=== PATIENT | female | born 1995 | race Caucasian/White ===

== ENCOUNTER 2020-06-24 05:55 | Inpatient (IN) ==
[2020-06-24] MEDS ORDERED: OXYTOCIN 30 UNITS/500 ML BAG IV PRN ×2 (06:48→16:50)
[2020-06-24 07:21] LABS: Hematocrit (blood only) 34.4 % (37-47); Mean Corpuscular Hemoglobin 25.5 pg (25-34); Mean Corpuscular Volume 79.8 fL (80-100); Mean Platelet Volume 10.6 fL (7.4-10.4); Platelet Count 279 K/uL (130-400); RDW Coefficient of Variation 14.1 % (11.5-14.5); Red Blood Count 4.31 M/uL (4.2-5.4); White Blood Count 12.55 K/uL (4.8-10.8)
[2020-06-24] MEDS ORDERED: LACTATED RINGER'S 500 ML IV ONE (07:49)
--- NOTE | 2020-06-24 07:55 | History & Physical Report ---
Date of Service June 24, 2020 Assessment & Plan (1) Uterine contractions at greater than 20 weeks of gestation: 24-year-old G1, P0 at 39 weeks and 5 days of gestation admitted for labor with regular contractions and cervical change Vital signs stable afebrile heart rate reassuring GBS negative, coronavirus negative Plan to admit monitor IV fluids and epidural for pain per patient desire Continue to monitor History of Present Illness Primary Care Provider: NO PCP Patient is a 24-year-old G1, P0 at 39 weeks and 5 days of gestation who presented to labor and delivery with contractions, started at 2:30 AM in the morning when she woke up with pain. Having getting more irregular and painful, she rates the pain 8 out of 10. She denies leakage of fluid or vaginal bleeding. She reports good movements She denies fever chills, nausea vomiting, headache, change in her vision, no chest pain or shortness of breath. Her has been uncomplicated, GBS negative, coronavirus negative. She has a remote history of asthma, superior mesenteric artery syndrome. No recent episodes of asthma neither SMA. She denies nausea vomiting, abdominal pain with eating, diarrhea. She has seen [facility] for this and growth ultrasound was within normal limits, no other recommendations were made. 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 Review of Systems All systems reviewed & are unremarkable except as noted in HPI & below Physical Exam Constitutional: WD/WN, vitals as above well developed and + thin Gastrointestinal (Abdomen): normal bowel sounds, soft, nontender, no hepatosplenomegaly (Gravid, Nikita 7 lb) Musculoskeletal: no cyanosis or clubbing, extremities motor strength 5/5 Extremities: extremities normal to inspection and strength 5/5 throughout Genitourinary: no vaginal lesions, no adnexal mass normal external appearance Manual OB Exam: + cervical dilation 5 cm, + cervical effacement 90% and + station -1 OB Exam Monitor Tracing: + external uterine monitor used and + category I Results & Data ([facility]) Vital Signs (Past 12 Hours) Vital Signs Temp Pulse Pulse Resp BP BP 06/24/20 07:05 36.6 C 72 18 111/71 06/24/20 06:09 37.0 C 82 18 133/72 06/24/20 06:02 82 133/72 06/24/20 06:01 37.0 C 18
[2020-06-24] MEDS: LACTATED RINGER'S 1,000 ML IV PRN ×3 (08:01→10:26)
[2020-06-24] MEDS ORDERED: BUPIVACAINE 0.25% 30 ML VIAL ONE (08:20)
[2020-06-24] MEDS ORDERED: ePHEDrine sulfate 50 MG/ML AMP ONE (08:20)
[2020-06-24] MEDS ORDERED: fentaNYL 2MCG/ML ROPIV 1.25MG/ML 100 ML BAG EPI ONE (08:21)
[2020-06-24] MEDS ORDERED: fentaNYL citrate 100 MCG/2 ML VIAL ONE (08:21)
[2020-06-24] MEDS ORDERED: DiphenhydrAMINE HCL 50 MG/ML VIAL IV PRN (08:43)
[2020-06-24] MEDS ORDERED: ePHEDrine sulfate 50 MG/ML AMP IV PRN (08:43)
[2020-06-24] MEDS ORDERED: NALOXONE HCL 0.4 MG/1 ML VIAL/CARP IV PRN (08:43)
[2020-06-24] MEDS ORDERED: ONDANSETRON INJ 2 MG/ML 2 ML VIAL IV PRN (08:43)
[2020-06-24] MEDS ORDERED: fentaNYL 2MCG/ML ROPIV 1.25MG/ML 100 ML BAG EPI PRN (08:43)
[2020-06-24] MEDS ORDERED: NALOXONE HCL 1 MG in SODIUM CHLORIDE 0.9% 1000ML 1,000 ML IV PRN (08:43)
--- NOTE | 2020-06-24 09:11 | Anesthesiology Consultation ---
Date of Service June 24, 2020 Assessment & Plan (1) Encounter for pre-operative examination: Chart Review Chart Review: Patient NOT seen in Pre Admission Testing and Acceptable Risk for Labor Epidural Consults Requested none ASA ASA2 Proposed Anesthesia Anesthesia Type: Labor Epidural Risk / Benefits Reviewed With: PT / POA / Parent / Guardian, Accepts Plan and Informed Consent Obtained History Height/Weight Height: 5 ft 6 in Weight: 68.039 kg Allergies Allergy/AdvReac Type Severity Reaction Status Date / Time codeine Allergy Unknown Verified 05/07/20 14:41 Medications Home Medications Medication Instructions Recorded Confirmed Last Taken PNV cmb#95-ferrous fumarate-FA 1 tab PO DAILY 05/07/20 06/24/20 06/23/20 [] calcium carbonate 500 mg PO DAILY PRN 05/07/20 06/24/20 06/24/20 Active Medications Generic Name Dose Route Start Last Admin Trade Name Freq PRN Reason Stop Dose Admin Lactated Ringer's 1,000 mls @ 150 mls/hr 06/24/20 06:48 06/24/20 08:35 Lr IV 06/26/20 06:47 150 mls/hr .[id number] PRN Administration L&D Protocol Protocol NPO Date Last Intake of Fluids: 06/23/20 Time Last Intake of Fluids: 20:00 Date Last Intake of Solids: 06/24/20 Time Last Intake of Solids: 08:00 Past Medical History Medical History History of asthma Exercise / Class Metabolic Activity II 4-5 Yardwork/Stairs/Walk up hill Past Surgical History Surgical History No pertinent past surgical history Past Anesthesia History No Hx of Anesthesia Complications and No Family Hx of Anesthesia Complications History of PONV No Hx of PONV and No Hx of Motion Sickness Social History Smoking Status: Never smoker Hx Alcohol Use: No Hx Substance Use: No Physical Exam Vital Signs Last Vital Signs Temp 36.6 C 06/24/20 07:05 Pulse 105 H 06/24/20 09:06 Resp 18 06/24/20 08:29 BP 143/72 H 06/24/20 09:06 Pulse Ox 100 06/24/20 09:05 ENMT Mouth: no dentition abnormality Thyromental Distance: > or= 3.5 Finger Breadths Mallampati Class: II Neck normal visual inspection Respiratory normal respiratory effort Auscultation: lungs clear to auscultation bilaterally Cardiovascular Rate/Rhythm: regular rate and regular rhythm Psychiatric Orientation: alert Testing Laboratory Results 06/24/20 07:04
--- NOTE | 2020-06-24 10:25 | Obstetrical Progress Note ---
Date of Service June 24, 2020 Subjective Patient is reevaluated. She feels well, comfortable, no pain. heart rate category 1 Vaginal exam, cervix is 6 cm dilated 90% effaced head at -1 station with a bulging bag. A R OM is done clear fluid was obtained. Continue to monitor. Results & Data ([facility]) Vital Signs (Past 12 Hours) Vital Signs Temp Pulse Pulse Resp BP BP Pulse Ox 06/24/20 10:20 80 99 06/24/20 10:18 95 H 92 06/24/20 10:16 75 109/58 L 06/24/20 10:15 101 H 100 06/24/20 10:10 73 97 06/24/20 10:05 59 L 97 06/24/20 10:00 61 98 06/24/20 09:56 85 104/57 L 06/24/20 09:55 70 100 06/24/20 09:50 83 100 06/24/20 09:45 62 100 06/24/20 09:40 68 99 06/24/20 09:37 62 109/62 06/24/20 09:35 72 100 06/24/20 09:30 70 18 100 06/24/20 09:25 86 100 06/24/20 09:20 102 H 18 124/71 100 06/24/20 09:15 102 H 124/71 100 06/24/20 09:12 81 115/67 06/24/20 09:10 91 H 100 06/24/20 09:09 77 123/67 06/24/20 09:06 105 H 143/72 H 06/24/20 09:05 105 H 100 06/24/20 09:03 111 H 111/66 06/24/20 09:01 86 116/67 06/24/20 09:00 87 18 100 06/24/20 08:57 93 H 104/57 L 06/24/20 08:55 93 H 100 06/24/20 08:50 92 H 128/58 L 100 06/24/20 08:46 96 H 93 06/24/20 08:45 95 H 94 06/24/20 08:44 06/24/20 08:40 89 100 06/24/20 08:36 88 132/65 06/24/20 08:35 83 99 06/24/20 08:29 18 06/24/20 07:05 36.6 C 72 18 111/71 06/24/20 06:09 37.0 C 82 18 133/72 06/24/20 06:02 82 133/72 06/24/20 06:01 37.0 C 18 Pulse Ox 06/24/20 10:20 06/24/20 10:18 06/24/20 10:16 06/24/20 10:15 06/24/20 10:10 06/24/20 10:05 06/24/20 10:00 06/24/20 09:56 06/24/20 09:55 06/24/20 09:50 06/24/20 09:45 06/24/20 09:40 06/24/20 09:37 06/24/20 09:35 06/24/20 09:30 06/24/20 09:25 06/24/20 09:20 06/24/20 09:15 06/24/20 09:12 06/24/20 09:10 06/24/20 09:09 06/24/20 09:06 06/24/20 09:05 06/24/20 09:03 06/24/20 09:01 06/24/20 09:00 06/24/20 08:57 06/24/20 08:55 06/24/20 08:50 06/24/20 08:46 06/24/20 08:45 06/24/20 08:44 100 06/24/20 08:40 06/24/20 08:36 06/24/20 08:35 06/24/20 08:29 06/24/20 07:05 06/24/20 06:09 06/24/20 06:02 06/24/20 06:01
--- NOTE | 2020-06-24 15:36 | Obstetrical Progress Note ---
Date of Service June 24, 2020 Subjective Patient is reevaluated, she feels rectal pressure but no pain. Vital signs stable afebrile heart rate is category 1. Cervix is 10 cm dilated 100% effaced head at +1 station. Discussed with the patient options of either expectant management/labor down or starting pushing now which is with decreased risk of intraamniotic infection. Patient desired to start push now. Continue to monitor. Results & Data ([facility]) Vital Signs (Past 12 Hours) Vital Signs Temp Pulse Pulse Resp BP BP Pulse Ox 06/24/20 15:31 91 H 100 06/24/20 15:30 93 H 84 L 06/24/20 15:25 93 H 100 06/24/20 15:24 107 H 87 L 06/24/20 15:20 82 100 06/24/20 15:17 71 117/68 06/24/20 15:15 81 100 06/24/20 15:10 72 100 06/24/20 15:05 69 100 06/24/20 15:00 76 18 100 06/24/20 14:56 74 123/76 06/24/20 14:55 78 100 06/24/20 14:52 76 91 06/24/20 14:50 75 100 06/24/20 14:45 84 100 06/24/20 14:40 82 100 06/24/20 14:37 79 110/63 06/24/20 14:35 78 100 06/24/20 14:32 88 88 L 06/24/20 14:30 87 100 06/24/20 14:25 83 100 06/24/20 14:24 83 91 06/24/20 14:20 83 100 06/24/20 14:16 65 123/62 06/24/20 14:15 78 100 06/24/20 14:10 98 H 100 06/24/20 14:05 102 H 100 06/24/20 14:00 36.8 C 101 H 18 99 06/24/20 13:57 86 110/63 06/24/20 13:55 82 99 06/24/20 13:50 90 100 06/24/20 13:45 84 100 06/24/20 13:40 100 H 100 06/24/20 13:37 73 115/58 L 06/24/20 13:35 89 100 06/24/20 13:30 77 18 96 09/21/20 13:28 75 91 06/24/20 13:25 88 100 06/24/20 13:20 75 100 06/24/20 13:16 90 113/63 06/24/20 13:15 85 100 06/24/20 13:10 86 100 06/24/20 13:07 77 91 06/24/20 13:05 89 100 06/24/20 13:00 36.8 C 76 18 100 06/24/20 12:56 80 109/70 06/24/20 12:55 72 100 06/24/20 12:50 69 100 06/24/20 12:45 81 100 06/24/20 12:40 68 96 06/24/20 12:38 71 117/58 L 06/24/20 12:35 81 100 06/24/20 12:30 67 100 06/24/20 12:29 86 93 06/24/20 12:25 99 H 100 06/24/20 12:20 95 H 100 06/24/20 12:17 67 108/52 L 06/24/20 12:15 79 98 06/24/20 12:10 66 98 06/24/20 12:05 60 98 06/24/20 12:00 68 99 06/24/20 11:57 62 109/64 06/24/20 11:55 61 100 06/24/20 11:50 67 99 06/24/20 11:45 71 100 06/24/20 11:44 76 94 06/24/20 11:40 64 100 06/24/20 11:36 64 111/66 06/24/20 11:35 66 99 06/24/20 11:30 67 100 06/24/20 11:25 79 100 06/24/20 11:20 67 96 06/24/20 11:16 64 113/58 L 06/24/20 11:15 76 100 06/24/20 11:10 72 100 06/24/20 11:05 36.7 C 75 100 06/24/20 11:02 98 H 94 06/24/20 11:00 69 18 100 06/24/20 10:57 73 106/67 06/24/20 10:56 93 H 92 06/24/20 10:55 97 H 100 06/24/20 10:50 91 H 100 06/24/20 10:45 88 100 06/24/20 10:40 88 100 06/24/20 10:36 72 122/55 L 06/24/20 10:35 82 100 06/24/20 10:30 96 H 18 100 06/24/20 10:25 88 98 06/24/20 10:20 80 99 06/24/20 10:18 95 H 92 06/24/20 10:16 75 109/58 L 06/24/20 10:15 101 H 100 06/24/20 10:10 73 97 06/24/20 10:05 59 L 97 06/24/20 10:00 61 98 06/24/20 09:56 85 104/57 L 06/24/20 09:55 70 100 06/24/20 09:50 83 100 06/24/20 09:45 62 100 06/24/20 09:40 68 99 06/24/20 09:37 62 109/62 06/24/20 09:35 72 100 06/24/20 09:30 70 18 100 06/24/20 09:25 86 100 06/24/20 09:20 102 H 18 124/71 100 06/24/20 09:15 102 H 124/71 100 06/24/20 09:12 81 115/67 06/24/20 09:10 91 H 100 06/24/20 09:09 77 123/67 06/24/20 09:06 105 H 143/72 H 06/24/20 09:05 105 H 100 06/24/20 09:03 111 H 111/66 06/24/20 09:01 86 116/67 06/24/20 09:00 87 18 100 06/24/20 08:57 93 H 104/57 L 06/24/20 08:55 93 H 100 06/24/20 08:50 92 H 128/58 L 100 06/24/20 08:46 96 H 93 06/24/20 08:45 95 H 94 06/24/20 08:44 06/24/20 08:40 89 100 06/24/20 08:36 88 132/65 06/24/20 08:35 83 99 06/24/20 08:29 18 06/24/20 07:05 36.6 C 72 18 111/71 06/24/20 06:09 37.0 C 82 18 133/72 06/24/20 06:02 82 133/72 06/24/20 06:01 37.0 C 18 Pulse Ox 06/24/20 15:31 06/24/20 15:30 06/24/20 15:25 06/24/20 15:24 06/24/20 15:20 06/24/20 15:17 06/24/20 15:15 06/24/20 15:10 06/24/20 15:05 06/24/20 15:00 06/24/20 14:56 06/24/20 14:55 06/24/20 14:52 06/24/20 14:50 06/24/20 14:45 06/24/20 14:40 06/24/20 14:37 06/24/20 14:35 06/24/20 14:32 06/24/20 14:30 06/24/20 14:25 06/24/20 14:24 06/24/20 14:20 06/24/20 14:16 06/24/20 14:15 06/24/20 14:10 06/24/20 14:05 06/24/20 14:00 06/24/20 13:57 06/24/20 13:55 06/24/20 13:50 06/24/20 13:45 06/24/20 13:40 06/24/20 13:37 06/24/20 13:35 06/24/20 13:30 06/24/20 13:28 06/24/20 13:25 06/24/20 13:20 06/24/20 13:16 06/24/20 13:15 06/24/20 13:10 06/24/20 13:07 06/24/20 13:05 06/24/20 13:00 06/24/20 12:56 06/24/20 12:55 06/24/20 12:50 06/24/20 12:45 06/24/20 12:40 06/24/20 12:38 06/24/20 12:35 06/24/20 12:30 06/24/20 12:29 06/24/20 12:25 06/24/20 12:20 06/24/20 12:17 06/24/20 12:15 06/24/20 12:10 06/24/20 12:05 06/24/20 12:00 06/24/20 11:57 06/24/20 11:55 06/24/20 11:50 06/24/20 11:45 06/24/20 11:44 06/24/20 11:40 06/24/20 11:36 06/24/20 11:35 06/24/20 11:30 06/24/20 11:25 06/24/20 11:20 06/24/20 11:16 06/24/20 11:15 06/24/20 11:10 06/24/20 11:05 06/24/20 11:02 06/24/20 11:00 06/24/20 10:57 06/24/20 10:56 06/24/20 10:55 06/24/20 10:50 06/24/20 10:45 06/24/20 10:40 06/24/20 10:36 06/24/20 10:35 06/24/20 10:30 06/24/20 10:25 06/24/20 10:20 06/24/20 10:18 06/24/20 10:16 06/24/20 10:15 06/24/20 10:10 06/24/20 10:05 06/24/20 10:00 06/24/20 09:56 06/24/20 09:55 06/24/20 09:50 06/24/20 09:45 06/24/20 09:40 06/24/20 09:37 06/24/20 09:35 06/24/20 09:30 06/24/20 09:25 06/24/20 09:20 06/24/20 09:15 06/24/20 09:12 06/24/20 09:10 06/24/20 09:09 06/24/20 09:06 06/24/20 09:05 06/24/20 09:03 06/24/20 09:01 06/24/20 09:00 06/24/20 08:57 06/24/20 08:55 06/24/20 08:50 06/24/20 08:46 06/24/20 08:45 06/24/20 08:44 100 06/24/20 08:40 06/24/20 08:36 06/24/20 08:35 06/24/20 08:29 06/24/20 07:05 06/24/20 06:09 06/24/20 06:02 06/24/20 06:01
--- NOTE | 2020-06-24 15:55 | Obstetrical Progress Note ---
Date of Service June 24, 2020 Subjective Patient has been pushing with good efforts. head at +2 station. heart rate category 1. Continue to monitor and anticipate . Results & Data ([facility]) Vital Signs (Past 12 Hours) Vital Signs Temp Pulse Pulse Resp BP BP Pulse Ox 06/24/20 15:51 116 H 97 06/24/20 15:50 92 H 74 L 06/24/20 15:46 88 99 06/24/20 15:45 94 H 88 L 06/24/20 15:41 103 H 100 06/24/20 15:37 110 H 89 L 06/24/20 15:36 97 H 100 06/24/20 15:35 120 H 114/57 L 06/24/20 15:31 91 H 100 06/24/20 15:30 93 H 18 84 L 06/24/20 15:25 93 H 100 06/24/20 15:24 107 H 87 L 06/24/20 15:20 82 100 06/24/20 15:17 71 117/68 06/24/20 15:15 81 100 06/24/20 15:10 72 100 06/24/20 15:05 69 100 06/24/20 15:00 76 18 100 06/24/20 14:56 74 123/76 06/24/20 14:55 78 100 06/24/20 14:52 76 91 06/24/20 14:50 75 100 06/24/20 14:45 84 100 06/24/20 14:40 82 100 06/24/20 14:37 79 110/63 06/24/20 14:35 78 100 06/24/20 14:32 88 88 L 06/24/20 14:30 87 100 06/24/20 14:25 83 100 06/24/20 14:24 83 91 06/24/20 14:20 83 100 06/24/20 14:16 65 123/62 06/24/20 14:15 78 100 06/24/20 14:10 98 H 100 06/24/20 14:05 102 H 100 06/24/20 14:00 36.8 C 101 H 18 99 06/24/20 13:57 86 110/63 06/24/20 13:55 82 99 06/24/20 13:50 90 100 06/24/20 13:45 84 100 06/24/20 13:40 100 H 100 06/24/20 13:37 73 115/58 L 06/24/20 13:35 89 100 06/24/20 13:30 77 18 96 06/24/20 13:28 75 91 06/24/20 13:25 88 100 06/24/20 13:20 75 100 06/24/20 13:16 90 113/63 06/24/20 13:15 85 100 06/24/20 13:10 86 100 06/24/20 13:07 77 91 06/24/20 13:05 89 100 06/24/20 13:00 36.8 C 76 18 100 06/24/20 12:56 80 109/70 06/24/20 12:55 72 100 06/24/20 12:50 69 100 06/24/20 12:45 81 100 06/24/20 12:40 68 96 06/24/20 12:38 71 117/58 L 06/24/20 12:35 81 100 06/24/20 12:30 67 100 06/24/20 12:29 86 93 06/24/20 12:25 99 H 100 06/24/20 12:20 95 H 100 06/24/20 12:17 67 108/52 L 06/24/20 12:15 79 98 06/24/20 12:10 66 98 06/24/20 12:05 60 98 06/24/20 12:00 68 99 06/24/20 11:57 62 109/64 06/24/20 11:55 61 100 06/24/20 11:50 67 99 06/24/20 11:45 71 100 06/24/20 11:44 76 94 06/24/20 11:40 64 100 06/24/20 11:36 64 111/66 06/24/20 11:35 66 99 06/24/20 11:30 67 100 06/24/20 11:25 79 100 06/24/20 11:20 67 96 06/24/20 11:16 64 113/58 L 06/24/20 11:15 76 100 06/24/20 11:10 72 100 06/24/20 11:05 36.7 C 75 100 06/24/20 11:02 98 H 94 06/24/20 11:00 69 18 100 06/24/20 10:57 73 106/67 06/24/20 10:56 93 H 92 06/24/20 10:55 97 H 100 06/24/20 10:50 91 H 100 06/24/20 10:45 88 100 06/24/20 10:40 88 100 06/24/20 10:36 72 122/55 L 06/24/20 10:35 82 100 06/24/20 10:30 96 H 18 100 06/24/20 10:25 88 98 06/24/20 10:20 80 99 06/24/20 10:18 95 H 92 06/24/20 10:16 75 109/58 L 06/24/20 10:15 101 H 100 06/24/20 10:10 73 97 06/24/20 10:05 59 L 97 06/24/20 10:00 61 98 06/24/20 09:56 85 104/57 L 06/24/20 09:55 70 100 06/24/20 09:50 83 100 06/24/20 09:45 62 100 06/24/20 09:40 68 99 06/24/20 09:37 62 109/62 06/24/20 09:35 72 100 06/24/20 09:30 70 18 100 06/24/20 09:25 86 100 06/24/20 09:20 102 H 18 124/71 100 06/24/20 09:15 102 H 124/71 100 06/24/20 09:12 81 115/67 06/24/20 09:10 91 H 100 06/24/20 09:09 77 123/67 06/24/20 09:06 105 H 143/72 H 06/24/20 09:05 105 H 100 06/24/20 09:03 111 H 111/66 06/24/20 09:01 86 116/67 06/24/20 09:00 87 18 100 06/24/20 08:57 93 H 104/57 L 06/24/20 08:55 93 H 100 06/24/20 08:50 92 H 128/58 L 100 06/24/20 08:46 96 H 93 06/24/20 08:45 95 H 94 06/24/20 08:44 06/24/20 08:40 89 100 06/24/20 08:36 88 132/65 06/24/20 08:35 83 99 06/24/20 08:29 18 06/24/20 07:05 36.6 C 72 18 111/71 06/24/20 06:09 37.0 C 82 18 133/72 06/24/20 06:02 82 133/72 06/24/20 06:01 37.0 C 18 Pulse Ox 06/24/20 15:51 06/24/20 15:50 06/24/20 15:46 06/24/20 15:45 06/24/20 15:41 06/24/20 15:37 06/24/20 15:36 06/24/20 15:35 06/24/20 15:31 06/24/20 15:30 06/24/20 15:25 06/24/20 15:24 06/24/20 15:20 06/24/20 15:17 06/24/20 15:15 06/24/20 15:10 06/24/20 15:05 06/24/20 15:00 06/24/20 14:56 06/24/20 14:55 06/24/20 14:52 06/24/20 14:50 06/24/20 14:45 06/24/20 14:40 06/24/20 14:37 06/24/20 14:35 06/24/20 14:32 06/24/20 14:30 06/24/20 14:25 06/24/20 14:24 06/24/20 14:20 06/24/20 14:16 06/24/20 14:15 06/24/20 14:10 06/24/20 14:05 06/24/20 14:00 06/24/20 13:57 06/24/20 13:55 06/24/20 13:50 06/24/20 13:45 06/24/20 13:40 06/24/20 13:37 06/24/20 13:35 06/24/20 13:30 06/24/20 13:28 06/24/20 13:25 06/24/20 13:20 06/24/20 13:16 06/24/20 13:15 06/24/20 13:10 06/24/20 13:07 06/24/20 13:05 06/24/20 13:00 06/24/20 12:56 06/24/20 12:55 06/24/20 12:50 06/24/20 12:45 06/24/20 12:40 06/24/20 12:38 06/24/20 12:35 06/24/20 12:30 06/24/20 12:29 06/24/20 12:25 06/24/20 12:20 06/24/20 12:17 06/24/20 12:15 06/24/20 12:10 06/24/20 12:05 06/24/20 12:00 06/24/20 11:57 06/24/20 11:55 06/24/20 11:50 06/24/20 11:45 06/24/20 11:44 06/24/20 11:40 06/24/20 11:36 06/24/20 11:35 06/24/20 11:30 06/24/20 11:25 06/24/20 11:20 06/24/20 11:16 06/24/20 11:15 06/24/20 11:10 06/24/20 11:05 06/24/20 11:02 06/24/20 11:00 06/24/20 10:57 06/24/20 10:56 06/24/20 10:55 06/24/20 10:50 06/24/20 10:45 06/24/20 10:40 06/24/20 10:36 06/24/20 10:35 06/24/20 10:30 06/24/20 10:25 06/24/20 10:20 06/24/20 10:18 06/24/20 10:16 06/24/20 10:15 06/24/20 10:10 06/24/20 10:05 06/24/20 10:00 06/24/20 09:56 06/24/20 09:55 06/24/20 09:50 06/24/20 09:45 06/24/20 09:40 06/24/20 09:37 06/24/20 09:35 06/24/20 09:30 06/24/20 09:25 06/24/20 09:20 06/24/20 09:15 06/24/20 09:12 06/24/20 09:10 06/24/20 09:09 06/24/20 09:06 06/24/20 09:05 06/24/20 09:03 06/24/20 09:01 06/24/20 09:00 06/24/20 08:57 06/24/20 08:55 06/24/20 08:50 06/24/20 08:46 06/24/20 08:45 06/24/20 08:44 100 06/24/20 08:40 06/24/20 08:36 06/24/20 08:35 06/24/20 08:29 06/24/20 07:05 06/24/20 06:09 06/24/20 06:02 06/24/20 06:01
[2020-06-24] MEDS ORDERED: BENZOCAINE 20% AER SPR 82.5 GM CAN EXT PRN (16:50)
[2020-06-24] MEDS ORDERED: SUPERCREAM 0.870% 15 GM JAR EXT PRN (16:50)
[2020-06-24] MEDS ORDERED: HYDROCORTISONE ACETATE 25 MG SUPP PR PRN (16:50)
[2020-06-24] MEDS ORDERED: DIPHTHERIA/TETANUS/PERTUSSIS 0.5 ML SYR/VIAL IM ONE (16:50)
[2020-06-24] MEDS ORDERED: bisacodyL 10 MG SUPP PR PRN (16:50)
[2020-06-24] MEDS ORDERED: ACETAMINOPHEN 325 MG TAB PO PRN (16:50)
[2020-06-24] MEDS ORDERED: MEASLES, MUMPS & RUBELLA VIRUS VIAL SQ ONE (16:50)
[2020-06-24] MEDS ORDERED: OXYCODONE/ACETAMINOPHEN 5mg/325mg TAB PO PRN (16:50)
--- NOTE | 2020-06-24 18:26 | Anesthesia Procedure Note ---
Date of Service June 24, 2020 Anesthesia Post Epidural Note Vital Signs Vital Signs: Temp Pulse Resp BP Pulse Ox 37.4 C 121 H 18 125/76 88 L 06/24/20 16:45 06/24/20 18:15 06/24/20 16:44 06/24/20 18:15 06/24/20 17:18 Pain Intensity Abdomen: Pain Intensity: 0 Notes Mental Status: alert / awake / arousable Nausea / Vomiting: adequately controlled Pain: adequately controlled Airway Patency, RR, SpO2: stable & adequate BP & HR: stable & adequate Hydration State: stable & adequate Neuraxial Anesthesia: was administered and sensory block is resolving Anesthetic Complications: no major complications apparent and Pt Satisfied with anesthetic care Epidural: Removed without complications and With tip intact
[2020-06-24] MEDS: IBUPROFEN 600 MG TAB PO PRN (19:51)
[2020-06-24] MEDS: DOCUSATE SODIUM 100 MG CAP PO SCH (21:30)
[2020-06-25] MEDS: IBUPROFEN 600 MG TAB PO PRN ×3 (02:34→18:52)
--- NOTE | 2020-06-25 02:56 | Delivery Summary ---
DATE OF OPERATION: 06/24/2020 TIME: 16:24 p.m. DETAILS OF DELIVERY: The patient was found to be fully dilated and desired to push. She pushed for about 50 minutes and delivered the head without difficulty. Shoulders were delivered with minimal traction. Baby was handed off to the mother. Terminal meconium was noted after delivery. Mouth and nose were suctioned. Cord was clamped x2 and cut and baby was taken off by the Pediatric team. Cord blood was obtained. Vagina and perineum were checked for lacerations. There was a second-degree perineal laceration at the posterior fourchette. It was checked to be second degree by rectal exam. Good sphincter tone was noted. Perineal body muscles around the sphincter were held with Allis clamps. Those were repaired with 2-0 Vicryl with [id number] stitches x2 to support the sphincter and then rectal exam was repeated. Good sphincter tone was noted and no sutures were felt. Gloves were changed and with another 2-0 Vicryl, vaginal mucosa was repaired with 2-0 in a running fashion and then bulbocavernous muscles in a running fashion and skin in a subcuticular fashion. Excellent hemostasis was achieved. The rest of the vagina and perineum were intact and placenta was found to be in the vagina, delivered spontaneous as intact and complete. Uterus was explored, found to be empty. Lower segment was cleared of all clots and debris. EBL was 200 mL. Fundus was firm. Mom and baby tolerated the procedure well. Sponge, lap, needle count was correct x2. Baby was a viable male , Apgars 7/8. No complications happened and I was present during whole procedure. I attest to the content of the Intraoperative Record and any orders documented therein. Any exceptions are noted below. MTDD
[2020-06-25 06:26] LABS: Hematocrit (blood only) 28.6 % (37-47); Hemoglobin 9.1 g/dL (12.0-16.0); Mean Corpuscular Hemoglobin 25.5 pg (25-34); Mean Corpuscular Hgb Conc 31.8 g/dL (32-36); Mean Corpuscular Volume 80.1 fL (80-100); Mean Platelet Volume 10.6 fL (7.4-10.4); Platelet Count 250 K/uL (130-400); RDW Coefficient of Variation 14.4 % (11.5-14.5); Red Blood Count 3.57 M/uL (4.2-5.4); White Blood Count 18.75 K/uL (4.8-10.8)
[2020-06-25] MEDS: FERROUS SULFATE 325 MG TAB PO SCH (08:33)
[2020-06-25] MEDS: PRENATAL VITAMIN 1 TAB PO SCH (08:33)
[2020-06-25] MEDS: DOCUSATE SODIUM 100 MG CAP PO SCH ×2 (08:33→20:23)
[2020-06-25] MEDS ORDERED: bisacodyL 5 MG TABEC PO SCH (20:00)
[2020-06-26] MEDS: IBUPROFEN 600 MG TAB PO PRN ×3 (00:07→07:13)
[2020-06-26 06:22] LABS: Hematocrit (blood only) 26.6 % (37-47); Hemoglobin 8.5 g/dL (12.0-16.0)
[2020-06-26] MEDS: PRENATAL VITAMIN 1 TAB PO SCH (07:12)
[2020-06-26] MEDS: FERROUS SULFATE 325 MG TAB PO SCH (07:12)
[2020-06-26] MEDS: DOCUSATE SODIUM 100 MG CAP PO SCH (07:12)
--- NOTE | 2020-06-26 11:47 | Obstetrical Progress Note ---
Date of Service June 26, 2020 Assessment & Plan Admission and Anticipated Discharge Date Admission Date: June 24, 2020 Physical Exam Physical Exam: abdomen soft and non tender no calf tenderness ambulating well vaginal bleeding scant hgb 8.5 Results & Data ([facility]) Vital Signs (Past 12 Hours) Vital Signs Temp Pulse Resp BP Pulse Ox 06/26/20 07:11 36.4 C L 76 20 109/67 06/26/20 00:05 36.6 C 80 18 118/66 98
== END 2020-06-26 13:00 | disposition home or self-care (01) | DRG 807 ==
LOC: OPB 05:55 → 4S1 06:00 → 4S2 19:26

== ENCOUNTER 2022-04-13 18:24 | Observation (INO) ==
[2022-04-13] MEDS ORDERED: TERBUTALINE SULFATE 1 MG/ML VIAL SQ PRN (18:37)
[2022-04-13] MEDS ORDERED: ONDANSETRON 4 MG OD TAB PO PRN (18:37)
[2022-04-13] MEDS ORDERED: ACETAMINOPHEN 325 MG TAB PO PRN (18:37)
[2022-04-13] MEDS ORDERED: LACTATED RINGER'S 1,000 ML IV ONE ×2 (18:41→21:38)
[2022-04-13 19:11] LABS: Basophils # (auto) 0.03 K/uL (0-0.2); Basophils % (auto) 0.2 %; Eosinophils # (auto) 0.04 K/uL (0-0.50); Eosinophils % (auto) 0.3 %; Hematocrit (blood only) 36.6 % (34.1-44.9); Hemoglobin 12.2 g/dl (12.0-16.0); Immature Granulocytes # (auto) 0.14 K/uL (0.00-0.02); Immature Granulocytes % (auto) 1.1 %; Lymphocytes # (auto) 0.77 K/uL (1.2-3.4); Lymphocytes % (auto) 5.8 %; Mean Corpuscular Hemoglobin 28.3 pg (25.0-34.0); Mean Corpuscular Hgb Conc 33.3 g/dL (32.0-36.0); Mean Corpuscular Volume 84.9 fL (80.0-100.0); Mean Platelet Volume 10.3 fL (9.4-12.3); Monocytes # (auto) 1.23 K/uL (0.24-0.82); Monocytes % (auto) 9.3 %; Neutrophils # (auto) 10.99 K/uL (1.4-6.5); Neutrophils % (auto) 83.3 %; Nucleated RBC # (auto) 0.02 K/uL (0-0); Nucleated RBC % (auto) 0.2 %; Platelet Count 195 K/uL (130-400); RDW Coefficient of Variation 14.2 % (11.5-14.5); Red Blood Count 4.31 M/uL (3.93-5.22)
[2022-04-13 19:17] LABS: Appearance Urine Clear (Clear); Bilirubin Urine Negative (Negative); Blood Urine Negative (Negative); Color Urine Yellow; Glucose Urine UA Negative (Negative); Ketones Urine 4+ (Negative); Leukocyte Esterase Urine Negative (Negative); Nitrite Urine Negative (Negative); Protein Urine Negative (Negative); Specific Gravity Urine 1.013 (1.000-1.030); Urobilinogen Urine Negative (Negative); pH Urine 6.5 (4.5-7.5)
[2022-04-13 19:35] LABS: Albumin Level 3.2 gm/dl (3.4-5.0); BUN Creatinine Ratio 6.7 (10-20); Bilirubin,Total 0.6 mg/dl (0.2-1.0); Calcium 8.1 mg/dl (8.5-10.1); Creatinine Clr Calc Pharmacy 104.1 ml/min; Est GFR (African American) 129.3 ml/min; Est GFR (Non-African American) 111.6 ml/min; Globulin 3.2 gm/dl (2.5-4.0); Potassium 3.5 mmol/L (3.5-5.1); Total Protein 6.4 gm/dl (6.0-8.3)
[2022-04-13] MEDS ORDERED: NIFEdipine 10 MG CAP PO STA (19:41)
[2022-04-13] MEDS ORDERED: D5W AND LACTATED RINGERS 1,000 ML IV SCH (19:45)
--- NOTE | 2022-04-13 19:54 | History & Physical Report ---
Date of Service April 13, 2022 Assessment & Plan (1) Cramping affecting , antepartum: (2) COVID-19 affecting in third trimester: Plan: 26-year-old -0-0-1 at 34 weeks and 1 day gestation presenting with fever chills, feeling sick, contractions, dehydration with ketonuria, positive COVID-19 testing. Maternal fever and tachycardia, 100% oxygen saturation in room air tachycardia resolving after IV fluid was started, contractions with no Cervical change, Dehydration with ketonuria, Plan to monitor, observe, IV fluids, labs, Procardia for contractions, dexamethasone for lung maturation, Continue to monitor closely, Will reevaluate in an hour, All questions were answered. (3) Fever and chills: (4) Dehydration during : (5) uterine contractions in third trimester, antepartum: History of Present Illness Chief Complaint: Feeling sick all day and contractions since 4 PM Primary Care Provider: NO PCP Patient is an 27-year-old -0-0-1 at 34 weeks and 1 days of gestation who has been feeling sick since this morning with fevers chills, mild cough and not feeling well. She started to feel sharp growing pains every 2 to 3 minutes since 4 PM not sure they were contractions. She was exposed to someone with positive COVID test results over the weekend and started to feel sick this morning [facility] COVID 19. She was told to be able to get results tomorrow. She denies leakage of fluid or vaginal bleeding. She reports good movements. She denies nausea vomiting, problem with urination, diarrhea. She has been drinking water but has not been eating well since this morning. She has been tachycardic since admission together with tachycardia with prolonged accelerations. Her initial temperature was 37.2 and now repeat is 38.2. Meanwhile her COVID testing came back positive. She denies chest pain shortness of breath, chest palpitations, dizziness. He had COVID in September 2021 which was mild for her and she was never vaccinated. Her has been complicated by, 1. Diagnosed with Listeria at 5 weeks and was admitted to the hospital and treated with amoxicillin. 2. Maternal asthma complicating , 3. 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 4. GERD Allergies Allergy/AdvReac Type Severity Reaction Status Date / Time codeine Allergy Unknown Verified 04/13/22 18:57 Home Medications Medication Instructions Recorded Confirmed Type calcium carbonate 500 mg calcium 500 mg PO DAILY PRN 05/07/20 06/24/20 History (1,250 mg) chewable tablet vit no.95-ferrous 1 tab PO DAILY 05/07/20 06/24/20 History fumarate 28 mg-folic acid 800 mcg tablet () Patient History Medical History History of asthma SMAS (superior mesenteric artery syndrome) Social History Smoking Status: Never smoker Second Hand Exposure: Yes; Do You Dip or Chew Tobacco: No; Tobacco Cessation Education Requested by Patient: No Hx Alcohol Use: No Hx Substance Use: No Preferred Language: Yi Communication Ability: Effective Vp Construction Required: No Beliefs That Will Affect Care: None marital status: Single Current Living Situation: Spouse Current Living Situation Comment: Maira Christian, Son- Pita 1.5y/o Other Information That Helps Us Care for You: No Feels Safe at Home: Yes Safety Concerns: Feels Safe At This Time Assistive Devices: None OB History Full-term in 2020 by myself, no complications Review of Systems as per Subjective / HPI Physical Exam Constitutional: well developed and + thin Hydrated, tachycardic Gastrointestinal (Abdomen): normal bowel sounds, soft, nontender, no hepatosplenomegaly (Nontender, gravid) Genitourinary: normal external appearance Manual OB Exam: + cervical dilation 1 cm, + cervical effacement 10% (Thick) and + station high OB Exam Monitor Tracing: + category I ( tachycardia intially, baseline is coming to 150s 160s with good accel) and + normal FHT variability Results & Data ([facility]) Vital Signs (Past 12 Hours) Vital Signs Temp Pulse Resp BP Pulse Ox 04/13/22 19:42 121 H 100 04/13/22 19:37 131 H 100 04/13/22 19:32 128 H 100 04/13/22 19:27 129 H 100 04/13/22 19:22 133 H 100 04/13/22 19:17 131 H 100 04/13/22 19:12 136 H 04/13/22 19:07 141 H 04/13/22 19:02 140 H 04/13/22 18:57 152 H 04/13/22 18:52 145 H 04/13/22 18:47 146 H 04/13/22 18:46 37.0 C 18 04/13/22 18:42 141 H 04/13/22 18:37 147 H 04/13/22 18:36 136 H 134/58 L Laboratory Results Lab Results 04/13/22 04/13/22 04/13/22 Range/Units 18:30 18:30 19:01 WBC (4.8-10.8) K/ul RBC (3.93-5.22) M/uL Hgb (12.0-16.0) g/dl Hct (34.1-44.9) % MCV (80.0-100.0) fL MCH (25.0-34.0) pg MCHC (32.0-36.0) g/dL RDW Std Deviation (36.4-46.3) fL RDW Coeff of Senthil (11.5-14.5) % Plt Count (130-400) K/uL MPV (9.4-12.3) fL Immature Gran % (Auto) % Neut % (Auto) % Lymph % (Auto) % [place] % (Auto) % Eos % (Auto) % Baso % (Auto) % Neut # (Auto) (1.4-6.5) K/uL Lymph # (Auto) (1.2-3.4) K/uL [place] # (Auto) (0.24-0.82) K/uL Eos # (Auto) (0-0.50) K/uL Baso # (Auto) (0-0.2) K/uL Immature Gran # (Auto) (0.00-0.02) K/uL Absolute Nucleated RBC (0-0) K/uL Nucleated RBC % (auto) % Sodium 131 L (136-145) mmol/L Potassium 3.5 (3.5-5.1) mmol/L Chloride 101 (98-107) mmol/L Carbon Dioxide 20 L (21-32) mmol/L Anion Gap 10 (3-11) BUN 5 L (6-23) mg/dl Creatinine 0.75 (0.6-1.2) mg/dl Est Cr Clr Drug Dosing 104.1 ml/min Est GFR ( Amer) 129.3 ml/min Est GFR (Non-Af Amer) 111.6 ml/min BUN/Creatinine Ratio 6.7 L (10-20) Glucose 80 (70-99(Fasting)) mg/dl Calcium 8.1 L (8.5-10.1) mg/dl Total Bilirubin 0.6 (0.2-1.0) mg/dl AST 24 (13-39) U/L ALT 17 (7-52) U/L Alkaline Phosphatase 172 H (34-104) U/L Total Protein 6.4 (6.0-8.3) gm/dl Albumin 3.2 L (3.4-5.0) gm/dl Globulin 3.2 (2.5-4.0) gm/dl Albumin/Globulin Ratio 1.0 (0.9-2) Urine Color Urine Appearance (Clear) Urine pH (4.5-7.5) Ur Specific [place] (1.000-1.030) Urine Protein (Negative) Urine Glucose (UA) (Negative) Urine Ketones (Negative) Urine Blood (Negative) Urine Nitrite (Negative) Urine Bilirubin (Negative) Urine Urobilinogen (Negative) Ur Leukocyte Esterase (Negative) SARS-CoV-2 (PCR) Cancelled SARS-CoV-2, RNA, NAAT POSITIVE A* (NEGATIVE) 04/13/22 04/13/22 Range/Units 19:01 Unknown WBC 13.20 H (4.8-10.8) K/ul RBC 4.31 (3.93-5.22) M/uL Hgb 12.2 (12.0-16.0) g/dl Hct 36.6 (34.1-44.9) % MCV 84.9 (80.0-100.0) fL MCH 28.3 (25.0-34.0) pg MCHC 33.3 (32.0-36.0) g/dL RDW Std Deviation 44.0 (36.4-46.3) fL RDW Coeff of Senthil 14.2 (11.5-14.5) % Plt Count 195 (130-400) K/uL MPV 10.3 (9.4-12.3) fL Immature Gran % (Auto) 1.1 % Neut % (Auto) 83.3 % Lymph % (Auto) 5.8 % [place] % (Auto) 9.3 % Eos % (Auto) 0.3 % Baso % (Auto) 0.2 % Neut # (Auto) 10.99 H (1.4-6.5) K/uL Lymph # (Auto) 0.77 L (1.2-3.4) K/uL [place] # (Auto) 1.23 H (0.24-0.82) K/uL Eos # (Auto) 0.04 (0-0.50) K/uL Baso # (Auto) 0.03 (0-0.2) K/uL Immature Gran # (Auto) 0.14 H (0.00-0.02) K/uL Absolute Nucleated RBC 0.02 H (0-0) K/uL Nucleated RBC % (auto) 0.2 % Sodium (136-145) mmol/L Potassium (3.5-5.1) mmol/L Chloride (98-107) mmol/L Carbon Dioxide (21-32) mmol/L Anion Gap (3-11) BUN (6-23) mg/dl Creatinine (0.6-1.2) mg/dl Est Cr Clr Drug Dosing ml/min Est GFR ( Amer) ml/min Est GFR (Non-Af Amer) ml/min BUN/Creatinine Ratio (10-20) Glucose (70-99(Fasting)) mg/dl Calcium (8.5-10.1) mg/dl Total Bilirubin (0.2-1.0) mg/dl AST (13-39) U/L ALT (7-52) U/L Alkaline Phosphatase (34-104) U/L Total Protein (6.0-8.3) gm/dl Albumin (3.4-5.0) gm/dl Globulin (2.5-4.0) gm/dl Albumin/Globulin Ratio (0.9-2) Urine Color Yellow Urine Appearance Clear (Clear) Urine pH 6.5 (4.5-7.5) Ur Specific [place] 1.013 (1.000-1.030) Urine Protein Negative (Negative) Urine Glucose (UA) Negative (Negative) Urine Ketones 4+ H (Negative) Urine Blood Negative (Negative) Urine Nitrite Negative (Negative) Urine Bilirubin Negative (Negative) Urine Urobilinogen Negative (Negative) Ur Leukocyte Esterase Negative (Negative) SARS-CoV-2 (PCR) SARS-CoV-2, RNA, NAAT (NEGATIVE)
[2022-04-13] MEDS ORDERED: CALCIUM CARBONATE 500 MG CHEWABLE TAB PO PRN (20:07)
[2022-04-13] MEDS ORDERED: POTASSIUM CHLORIDE CRTAB 20 MEQ TABCR PO STA (20:21)
[2022-04-13] MEDS ORDERED: ACETAMINOPHEN 325 MG TAB PO STA (20:25)
--- NOTE | 2022-04-13 20:46 | XRay Report ---
SINGLE VIEW CHEST CLINICAL HISTORY: Fever. FINDINGS: An AP, portable, upright chest radiograph is obtained. No prior studies are available for c omparison at the time of dictation. The cardiomediastinal silhouette is unremarkable. The lungs and p leural spaces are clear. No pneumothorax is seen. The bony thorax is grossly intact. IMPRESSION: No active disease in the chest. ACT 112: Negative or not required by law. Electronically signed by: Peyman Handy M.D. 04/13/2022 8:45 PM
[2022-04-13] MEDS: dexAMETHasone 6 MG in SYRINGE 0 ML IV SCH (21:23)
--- NOTE | 2022-04-13 21:24 | Hospitalist Consultation ---
Date of Consultation April 13, 2022 Assessment & Plan (1) COVID-19 affecting in third trimester: Final Assessment and Recommendations as follows : Sepsis secondary to COVID-19 infection Clinical dehydration secondary to above asthma, not in acute exacerbation Supportive management for COVID-19 infection No indication for antibiotics for now. IVF, encourage p.o. intake DVT prophylaxis. Lovenox 40 mg subcutaneous daily if OB service agreeable. Thank you very much for this consultation. Dr. Delgadillo will follow patient's progress. History of Present Illness Reason for Consultation: COVID illness, fever, tachycardia Requesting Physician: Dr. Hartman Attending Physician: Papa Hartman MD History of Present Illness PCP : Dr. Garcia History obtained from patient and records. Medical history significant for asthma, history SMA syndrome as per records, history listeriosis during status post amoxicillin, Last confinement 2019 under OB service for vaginal delivery. Patient currently at 34 weeks AOG. 2 days history of flulike symptoms, runny nose, dry cough symptoms and fever. Poor appetite. Sick COVID-19 contacts. Patient has not received COVID-19 vaccination. Patient seen at [facility]. COVID-19 test pending. Patient later on experienced abdominal contractions. Patient admitted under OB service for contractions. Dexamethasone given to facilitate lung maturation. Patient had transient chest pain, SOB attributed to reflux, emesis following applesauce intake on OB floor. Patient currently feeling much better. Medical History as above Surgical History : None Family History : DM, Hypertension Personal/Social history : Non-smoker, no EtOH intake, secretarial work Allergies Allergy/AdvReac Type Severity Reaction Status Date / Time codeine Allergy Unknown Verified 04/13/22 18:57 Home Medications Medication Instructions Recorded Confirmed Type calcium carbonate 500 mg calcium 500 mg PO DAILY PRN 05/07/20 06/24/20 History (1,250 mg) chewable tablet vit no.95-ferrous 1 tab PO DAILY 05/07/20 06/24/20 History fumarate 28 mg-folic acid 800 mcg tablet () Patient History Medical History History of asthma SMAS (superior mesenteric artery syndrome) Social History Smoking Status: Never smoker Second Hand Exposure: Yes; Do You Dip or Chew Tobacco: No; Tobacco Cessation Education Requested by Patient: No Hx Alcohol Use: No Hx Substance Use: No Preferred Language: Mongolian Communication Ability: Effective Assistant Manager Bilingual Required: No Beliefs That Will Affect Care: None marital status: Single Current Living Situation: Spouse Current Living Situation Comment: Andrea Arrieta 1.5y/o Other Information That Helps Us Care for You: No Feels Safe at Home: Yes Safety Concerns: Feels Safe At This Time Assistive Devices: None Review of Systems Review of Systems: As per HPI, all other systems reviewed and negative Physical Exam Physical Exam: GENERAL: Comfortable, pleasant, no respiratory distress SKIN: Pallor, warm HEENT: Pale palpebral conjunctivae, no ptosis, dry buccal mucosa NECK : Supple, no tenderness CHEST : CTA, no tenderness HEART : Tachycardic, no obvious murmurs ABDOMEN: Globular, nontender EXTREMITIES : Minimal LE swelling, no LE tenderness, no other conspicuous deformities noted NEUROLOGIC : Coherent, no facial asymmetry, no other gross focality Results & Data Results & Data ([facility]) Vital Signs (Past 12 Hours) Vital Signs Temp Pulse Resp BP Pulse Ox 04/13/22 21:21 132 H 97 04/13/22 21:16 139 H 99 04/13/22 21:11 142 H 97 04/13/22 21:06 140 H 98 04/13/22 21:01 140 H 99 04/13/22 20:56 142 H 100 04/13/22 20:51 135 H 99 04/13/22 20:46 146 H 98 04/13/22 20:41 151 H 100 04/13/22 20:32 147 H 100 04/13/22 20:27 148 H 99 04/13/22 20:22 129 H 100 04/13/22 20:17 142 H 100 04/13/22 20:12 137 H 100 04/13/22 20:07 124 H 100 04/13/22 20:02 130 H 100 04/13/22 20:00 129 H 93 04/13/22 19:57 117 H 100 04/13/22 19:52 127 H 100 04/13/22 19:51 127 H 93/50 L 04/13/22 19:47 131 H 100 04/13/22 19:42 38.2 C H 121 H 18 100 04/13/22 19:37 131 H 100 04/13/22 19:32 128 H 100 04/13/22 19:27 129 H 100 04/13/22 19:22 133 H 100 04/13/22 19:17 131 H 100 04/13/22 19:12 136 H 100 04/13/22 19:07 141 H 100 04/13/22 19:02 140 H 100 04/13/22 18:57 152 H 100 04/13/22 18:52 145 H 100 04/13/22 18:47 146 H 100 04/13/22 18:46 37.0 C 18 04/13/22 18:42 141 H 100 04/13/22 18:37 147 H 100 04/13/22 18:36 136 H 134/58 L Laboratory Results Laboratory Results WBC 13.20 K/ul (4.8-10.8) H 04/13/22 19: RBC 4.31 M/uL (3.93-5.22) 04/13/22 19:01 Hgb 12.2 g/dl (12.0-16.0) 04/13/22 19:01 Hct 36.6 % (34.1-44.9) 04/13/22 19: MCV 84.9 fL (80.0-100.0) 04/13/22 19:01 MCH 28.3 pg (25.0-34.0) 04/13/22 19: MCHC 33.3 g/dL (32.0-36.0) 04/13/22 19: RDW Std Deviation 44.0 fL (36.4-46.3) 04/13/22 19: RDW Coeff of Senthil 14.2 % (11.5-14.5) 04/13/22 19: Plt Count 195 K/uL (130-400) 04/13/22 19: MPV 10.3 fL (9.4-12.3) 04/13/22 19:01 Immature Gran % (Auto) 1.1 % 04/13/22 19:01 Neut % (Auto) 83.3 % 04/13/22 19: Lymph % (Auto) 5.8 % 04/13/22 19:01 [place] % (Auto) 9.3 % 04/13/22 19:01 Eos % (Auto) 0.3 % 04/13/22 19:01 Baso % (Auto) 0.2 % 04/13/22 19:01 Neut # (Auto) 10.99 K/uL (1.4-6.5) H 04/13/22 19:01 Lymph # (Auto) 0.77 K/uL (1.2-3.4) L 04/13/22 19:01 [place] # (Auto) 1.23 K/uL (0.24-0.82) H 04/13/22 19:01 Eos # (Auto) 0.04 K/uL (0-0.50) 04/13/22 19:01 Baso # (Auto) 0.03 K/uL (0-0.2) 04/13/22 19:01 Immature Gran # (Auto) 0.14 K/uL (0.00-0.02) H 04/13/22 19:01 Absolute Nucleated RBC 0.02 K/uL (0-0) H 04/13/22 19:01 Nucleated RBC % (auto) 0.2 % 04/13/22 19:01 Sodium 131 mmol/L (136-145) L 04/13/22 19:01 Potassium 3.5 mmol/L (3.5-5.1) 04/13/22 19: Chloride 101 mmol/L (98-107) 04/13/22 19: Carbon Dioxide 20 mmol/L (21-32) L 04/13/22 19: Anion Gap 10 (3-11) 04/13/22 19: BUN 5 mg/dl (6-23) L 04/13/22 19:01 Creatinine 0.75 mg/dl (0.6-1.2) 04/13/22 19: Est Cr Clr Drug Dosing 104.1 ml/min 04/13/22 19:01 Est GFR ( Amer) 129.3 ml/min 04/13/22 19: Est GFR (Non-Af Amer) 111.6 ml/min 04/13/22 19: BUN/Creatinine Ratio 6.7 (10-20) L 04/13/22 19: Glucose 80 mg/dl (70-99(Fasting)) 04/13/22 19:01 Calcium 8.1 mg/dl (8.5-10.1) L 04/13/22 19:01 Total Bilirubin 0.6 mg/dl (0.2-1.0) 04/13/22 19:01 AST 24 U/L (13-39) 04/13/22 19:01 ALT 17 U/L (7-52) 04/13/22 19:01 Alkaline Phosphatase 172 U/L (34-104) H 04/13/22 19:01 Total Protein 6.4 gm/dl (6.0-8.3) 04/13/22 19:01 Albumin 3.2 gm/dl (3.4-5.0) L 04/13/22 19:01 Globulin 3.2 gm/dl (2.5-4.0) 04/13/22 19:01 Albumin/Globulin Ratio 1.0 (0.9-2) 04/13/22 19:01 Urine Color Yellow 04/13/22 Unknown Urine Appearance Clear (Clear) 04/13/22 Unknown Urine pH 6.5 (4.5-7.5) 04/13/22 Unknown Ur Specific [place] 1.013 (1.000-1.030) 04/13/22 Unknown Urine Protein Negative (Negative) 04/13/22 Unknown Urine Glucose (UA) Negative (Negative) 04/13/22 Unknown Urine Ketones 4+ (Negative) H 04/13/22 Unknown Urine Blood Negative (Negative) 04/13/22 Unknown Urine Nitrite Negative (Negative) 04/13/22 Unknown Urine Bilirubin Negative (Negative) 04/13/22 Unknown Urine Urobilinogen Negative (Negative) 04/13/22 Unknown Ur Leukocyte Esterase Negative (Negative) 04/13/22 Unknown SARS-CoV-2 (PCR) Cancelled 04/13/22 18:30 SARS-CoV-2, RNA, NAAT POSITIVE (NEGATIVE) A* 04/13/22 18:30 Impressions Chest X-Ray 04/13/22 20:22 SINGLE VIEW CHEST CLINICAL HISTORY: Fever. FINDINGS: An AP, portable, upright chest radiograph is obtained. No prior studies are available for comparison at the time of dictation. The cardiomediastinal silhouette is unremarkable. The lungs and pleural spaces are clear. No pneumothorax is seen. The bony thorax is grossly intact. IMPRESSION: No active disease in the chest. ACT 112: Negative or not required by law. Electronically signed by: Peyman Handy M.D. 04/13/2022 8:45 PM Diagnostic Findings EKG as per my interpretation :Rate 115, sinus tachycardia, normal axis, T wave flattening inferior leads
--- NOTE | 2022-04-13 21:28 | Obstetrical Progress Note ---
Date of Service April 13, 2022 Subjective Patient is reevaluated. She feels much better, does not feel sick anymore. No more contractions. She feels hungry and desires to eat. Vaginal exam, cervix is unchanged, heart rate with baseline of 150, category 1 with good accelerations, no decelerations and moderate variability. [place] with irregular mild contractions every 6 to 7 minutes. Still has tachycardia with fever of 38.2 Celsius. Medicine ordered chest x-ray which is within normal limits. Pending labs and medicine consult. Continue to monitor closely, Continue with dexamethasone series for lung maturation. All questions were answered. Results & Data ([facility]) Vital Signs (Past 12 Hours) Vital Signs Temp Pulse Resp BP Pulse Ox 04/13/22 21:21 132 H 97 04/13/22 21:16 139 H 99 04/13/22 21:11 142 H 97 04/13/22 21:06 140 H 98 04/13/22 21:01 140 H 99 04/13/22 20:56 142 H 100 04/13/22 20:51 135 H 99 04/13/22 20:46 146 H 98 04/13/22 20:41 151 H 100 04/13/22 20:32 147 H 100 04/13/22 20:27 148 H 99 04/13/22 20:22 129 H 100 04/13/22 20:17 142 H 100 04/13/22 20:12 137 H 100 04/13/22 20:07 124 H 100 04/13/22 20:02 130 H 100 04/13/22 20:00 129 H 93 04/13/22 19:57 117 H 100 04/13/22 19:52 127 H 100 04/13/22 19:51 127 H 93/50 L 04/13/22 19:47 131 H 100 04/13/22 19:42 38.2 C H 121 H 18 100 04/13/22 19:37 131 H 100 04/13/22 19:32 128 H 100 04/13/22 19:27 129 H 100 04/13/22 19:22 133 H 100 04/13/22 19:17 131 H 100 04/13/22 19:12 136 H 100 04/13/22 19:07 141 H 100 04/13/22 19:02 140 H 100 04/13/22 18:57 152 H 100 07/11/22 18:52 145 H 04/13/22 18:47 146 H 04/13/22 18:46 37.0 C 18 04/13/22 18:42 141 H 04/13/22 18:37 147 H 04/13/22 18:36 136 H 134/58 L
[2022-04-13 21:35] LABS: Partial Thromboplastin Ratio 1.1; Partial Thromboplastin Time 30.1 Seconds (21.0-31.0)
[2022-04-13] MEDS ORDERED: LACTATED RINGER'S 1,000 ML IV SCH (22:00)
[2022-04-13] MEDS: FAMOTIDINE 10 MG TABLET PO SCH (22:44)
[2022-04-13] MEDS: MAGNESIUM SULFATE / D5W 1 GM/100 ML BAG IV SCH (22:44)
[2022-04-14] MEDS: MAGNESIUM SULFATE / D5W 1 GM/100 ML BAG IV SCH
[2022-04-14] MEDS ORDERED: NIFEdipine EXTENDED REL 30 MG TABCR PO STA (01:55)
[2022-04-14] MEDS ORDERED: LEVALBUTEROL TARTRATE 15 GM HFA.AER.AD INH PRN (02:06)
[2022-04-14] MEDS: dexAMETHasone 6 MG in SYRINGE 0 ML IV SCH ×2 (09:47→20:33)
[2022-04-14] MEDS: PRENATAL VITAMIN 1 TAB PO SCH (09:47)
[2022-04-14] MEDS: FAMOTIDINE 10 MG TABLET PO SCH ×2 (09:47→20:32)
[2022-04-14] MEDS: ENOXAPARIN INJ 40 MG/0.4 ML SYR SQ SCH (09:55)
--- NOTE | 2022-04-14 12:08 | Electrocardiogram Report ---
Test Reason : Blood Pressure : / mmHG Vent. Rate : 115 BPM Atrial Rate : 115 BPM P-R Int : 134 ms QRS Dur : 076 ms QT Int : 326 ms P-R-T Axes : 043 057 027 degrees QTc Int : 450 ms Sinus tachycardia Nonspecific ST abnormality Otherwise normal ECG No previous ECGs available Confirmed by Ezio Graham ([id number]) on 04/14/2022 12:07:38 PM Referred By: Papa Hartman Confirmed By:Bassam Graham
--- NOTE | 2022-04-14 12:40 | Progress Note ---
Date of Service April 14, 2022 Assessment & Plan (1) COVID-19 affecting in third trimester: Plan: COVID + PTL Pt doing well Denies any symptoms. No cough, SOB or fever PTL; No ctx on Procardia On Decadron Plan continue Decadron series continue Procardia will D/C after completion of Decadron series. (2) uterine contractions in third trimester, antepartum: Admission and Anticipated Discharge Date Admission Date: April 13, 2022 Results & Data ([facility]) Vital Signs (Past 12 Hours) Vital Signs Temp Pulse Resp BP BP Pulse Ox 04/14/22 12:04 109 H 97 04/14/22 11:59 114 H 95 04/14/22 11:54 114 H 97 04/14/22 11:49 122 H 97 04/14/22 11:46 36.7 C 122 H 18 108/54 L 04/14/22 10:07 123 H 99 04/14/22 10:02 124 H 100 04/14/22 09:57 129 H 99 04/14/22 09:52 129 H 100 04/14/22 09:47 132 H 100 04/14/22 09:42 135 H 100 04/14/22 09:37 125 H 98 04/14/22 09:22 125 H 100 04/14/22 09:17 118 H 100 04/14/22 09:12 115 H 100 04/14/22 09:07 115 H 100 04/14/22 09:02 112 H 100 04/14/22 08:57 118 H 100 04/14/22 08:52 107 H 100 04/14/22 08:47 116 H 100 04/14/22 08:42 113 H 100 04/14/22 08:37 105 H 100 04/14/22 08:32 110 H 100 04/14/22 08:27 111 H 98 04/14/22 08:22 104 H 99 04/14/22 08:17 94 H 100 04/14/22 08:12 101 H 98 04/14/22 08:07 97 H 100 04/14/22 08:02 97 H 98 04/14/22 07:57 96 H 98 04/14/22 07:52 106 H 98 04/14/22 07:47 92 H 99 04/14/22 07:37 98 H 98 04/14/22 07:36 36.6 C 95 H 18 98/56 L 04/14/22 07:32 104 H 98 04/14/22 07:27 103 H 97 04/14/22 07:22 90 98 04/14/22 07:17 100 H 99 04/14/22 07:12 84 98 04/14/22 07:07 97 H 99 04/14/22 07:02 88 99 04/14/22 06:57 92 H 99 04/14/22 06:52 92 H 99 04/14/22 06:47 91 H 99 04/14/22 06:42 86 99 04/14/22 06:37 98 H 99 04/14/22 06:32 99 H 100 04/14/22 06:27 86 98 04/14/22 06:22 83 99 04/14/22 06:17 81 97 04/14/22 06:12 87 98 04/14/22 06:07 87 96 04/14/22 06:02 95 H 98 04/14/22 05:57 95 H 100 04/14/22 05:51 87 97 04/14/22 05:46 101 H 97 04/14/22 05:41 84 98 04/14/22 05:36 84 96 04/14/22 05:31 86 97 04/14/22 05:26 86 97 04/14/22 05:21 87 97 04/14/22 05:16 86 97 04/14/22 05:11 87 97 04/14/22 05:06 85 97 04/14/22 05:01 82 98 04/14/22 04:56 78 97 04/14/22 04:51 86 98 04/14/22 04:46 90 97 04/14/22 04:41 97 H 99 04/14/22 04:35 84 97 04/14/22 04:30 90 97 04/14/22 04:25 89 97 04/14/22 04:20 90 97 04/14/22 04:15 85 97 04/14/22 04:10 86 97 04/14/22 04:05 84 97 04/14/22 04:00 93 H 97 04/14/22 03:55 90 97 04/14/22 03:50 94 H 97 04/14/22 03:45 89 97 04/14/22 03:40 91 H 97 04/14/22 03:35 90 97 04/14/22 03:30 90 97 04/14/22 03:25 88 97 04/14/22 03:20 89 97 04/14/22 03:15 90 97 04/14/22 03:10 90 97 04/14/22 03:05 89 97 04/14/22 03:00 92 H 96 04/14/22 02:55 36.6 C 92 H 15 97 04/14/22 02:50 106 H 97 04/14/22 02:46 36.6 C 15 91/50 L 95 04/14/22 02:44 92 H 91/50 L 04/14/22 02:43 103 H 95 04/14/22 02:38 93 H 95 04/14/22 02:33 88 95 04/14/22 02:28 93 H 95 04/14/22 02:23 94 H 96 04/14/22 02:18 93 H 96 04/14/22 02:13 96 H 97 04/14/22 02:08 92 H 96 04/14/22 02:03 91 H 96 04/14/22 01:58 92 H 96 04/14/22 01:53 86 97 04/14/22 01:48 92 H 97 04/14/22 01:43 91 H 96 04/14/22 01:38 93 H 97 04/14/22 01:33 104 H 98 04/14/22 01:28 102 H 97 04/14/22 01:23 107 H 97 04/14/22 01:18 109 H 97 04/14/22 01:13 110 H 98 04/14/22 01:07 100 H 97 04/14/22 01:02 100 H 97 04/14/22 00:57 102 H 97 04/14/22 00:52 101 H 97 04/14/22 00:47 102 H 97 04/14/22 00:42 101 H 97 04/14/22 00:37 102 H 97
--- NOTE | 2022-04-14 17:20 | Hospitalist Progress Note ---
Date of Service April 14, 2022 Assessment & Plan (1) COVID-19 affecting in third trimester: Plan: Final Assessment and Recommendations as follows : Sepsis secondary to COVID-19 infection History of COVID-19 infection in September without any sequela Not been vaccinated for COVID-19 virus Has been on Decadron Saturating normally on room air and does not require any further treatment for COVID 19 virus Remains stable Clinical dehydration secondary to above Received cautious amount of IV fluid Advised to increase oral intake Blood pressure remains on the lower side Asthma, not in acute exacerbation No wheezing on examination DVT prophylaxis. Lovenox 40 mg subcutaneous daily if OB service agreeable. Patient refused Lovenox Has been ambulating in the room. Advised to use SCDs while in bed Remains medically stable to be discharged Maintain isolation at home for about 10 days from the date of diagnosis Admission and Anticipated Discharge Date Admission Date: April 13, 2022 Subjective 04/14/2022 The patient was seen and examined in [employer] unit She denies any symptoms of chest pain, palpitation or shortness of breath She has been saturating 97% on room air Review of Systems Review of Systems: All systems reviewed and are unremarkable except as noted below Physical Exam Physical Exam: Lying in bed comfortably Constitutional: well developed, well nourished and healthy appearing; not ill appearing Eyes: PERRL, conjunctivae normal, anicteric sclerae ENMT: external ear and nose normal, oropharynx normal Neck: trachea midline, no thyromegaly Respiratory: no respiratory distress Auscultation: lungs clear to auscultation bilaterally Cardiovascular: Rate/Rhythm: regular rate, regular rhythm and + tachycardic Heart Sounds: normal S1 and normal S2; no murmur Extremities: no edema Gastrointestinal (Abdomen): Inspection/Auscultation: + abdomen distended (Due to third trimester ) and normal bowel sounds Musculoskeletal: No acute arthritis involving any joint Neurologic: normal touch/pain/proprioception and moves all extremities Results & Data Results & Data ([facility]) Vital Signs (Past 12 Hours) Vital Signs Temp Pulse Pulse Resp BP BP Pulse Ox 04/14/22 15:30 36.8 C 110 H 18 100/66 97 04/14/22 14:39 112 H 98 04/14/22 14:34 110 H 98 04/14/22 14:29 115 H 98 04/14/22 14:24 116 H 99 04/14/22 14:19 116 H 97 04/14/22 14:14 114 H 97 04/14/22 14:09 123 H 97 04/14/22 14:04 129 H 18 98 04/14/22 12:04 109 H 97 04/14/22 11:59 114 H 95 04/14/22 11:54 114 H 97 04/14/22 11:49 122 H 97 04/14/22 11:46 36.7 C 122 H 18 108/54 L 04/14/22 10:07 123 H 99 04/14/22 10:02 124 H 100 04/14/22 09:57 129 H 99 04/14/22 09:52 129 H 100 04/14/22 09:47 132 H 100 04/14/22 09:42 135 H 100 04/14/22 09:37 125 H 98 04/14/22 09:22 125 H 100 04/14/22 09:17 118 H 100 04/14/22 09:12 115 H 100 04/14/22 09:07 115 H 100 04/14/22 09:02 112 H 100 04/14/22 08:57 118 H 100 04/14/22 08:52 107 H 100 04/14/22 08:47 116 H 100 04/14/22 08:42 113 H 100 04/14/22 08:37 105 H 100 04/14/22 08:32 110 H 100 04/14/22 08:27 111 H 98 04/14/22 08:22 104 H 99 04/14/22 08:17 94 H 100 04/14/22 08:12 101 H 98 04/14/22 08:07 97 H 100 04/14/22 08:02 97 H 98 04/14/22 07:57 96 H 98 04/14/22 07:52 106 H 98 04/14/22 07:47 92 H 99 04/14/22 07:37 98 H 98 04/14/22 07:36 36.6 C 95 H 18 98/56 L 04/14/22 07:32 104 H 98 04/14/22 07:27 103 H 97 04/14/22 07:22 90 98 04/14/22 07:17 100 H 99 04/14/22 07:12 84 98 04/14/22 07:07 97 H 99 04/14/22 07:02 88 99 04/14/22 06:57 92 H 99 04/14/22 06:52 92 H 99 04/14/22 06:47 91 H 99 04/14/22 06:42 86 99 04/14/22 06:37 98 H 99 04/14/22 06:32 99 H 100 04/14/22 06:27 86 98 04/14/22 06:22 83 99 04/14/22 06:17 81 97 04/14/22 06:12 87 98 04/14/22 06:07 87 96 04/14/22 06:02 95 H 98 04/14/22 05:57 95 H 100 04/14/22 05:51 87 97 04/14/22 05:46 101 H 97 04/14/22 05:41 84 98 04/14/22 05:36 84 96 04/14/22 05:31 86 97 04/14/22 05:26 86 97 04/14/22 05:21 87 97 04/14/22 05:16 86 97 Laboratory Results Short CBC 04/13/22 Range/Units 19:01 WBC 13.20 H (4.8-10.8) K/ul Hgb 12.2 (12.0-16.0) g/dl Hct 36.6 (34.1-44.9) % Plt Count 195 (130-400) K/uL BMP 04/13/22 19:01 Sodium 131 L Potassium 3.5 Chloride 101 Carbon Dioxide 20 L BUN 5 L Creatinine 0.75 Glucose 80 Calcium 8.1 L Liver Function 04/13/22 Range/Units 19:01 Total Bilirubin 0.6 (0.2-1.0) mg/dl AST 24 (13-39) U/L ALT 17 (7-52) U/L Alkaline Phosphatase 172 H (34-104) U/L Albumin 3.2 L (3.4-5.0) gm/dl Urine 04/13/22 Range/Units Unknown Urine Color Yellow Urine Appearance Clear (Clear) Urine pH 6.5 (4.5-7.5) Ur Specific Lynn 1.013 (1.000-1.030) Urine Protein Negative (Negative) Urine Glucose (UA) Negative (Negative) Medications Administered Current Inpatient Medications Acetaminophen (Acetaminophen 325 Mg Tab) 650 mg PO Q4H PRN PRN Reason: Pain or Fever Stop: 05/13/22 18:36 Calcium Carbonate (Calcium Carbonate 500 Mg Chewable Tab) 500 mg PO Q6 PRN PRN Reason: Indigestion Stop: 05/13/22 20:06 Enoxaparin Sodium (Enoxaparin Inj 40 Mg/0.4 Ml Syr) 40 mg SQ QAM [facility] Stop: 05/14/22 08:59 Last Admin: 04/14/22 09:55 Dose: Not Given Documented by: Famotidine (Famotidine 10 Mg Tablet) 10 mg PO BID [facility] Stop: 05/13/22 20:59 Last Admin: 04/14/22 09:47 Dose: 10 mg Documented by: Dexamethasone 6 mg/ Syringe 1.5 mls @ 1 mls/min IV Q12H [facility] Stop: 04/15/22 08:02 Last Admin: 04/14/22 09:47 Dose: 1 mls/min Documented by: Levalbuterol HCl (Levalbuterol Tartrate 15 Gm Hfa.Aer.Ad) 2 puffs INH Q4H PRN PRN Reason: sob/wheeze Stop: 05/14/22 02:05 Nifedipine (Nifedipine Extended Rel 30 Mg Tabcr) 30 mg PO QAM [facility] Stop: 05/15/22 08:59 Ondansetron HCl (Ondansetron 4 Mg Od Tab) 4 mg PO Q4H PRN PRN Reason: Nausea And Vomiting Stop: 05/13/22 18:36 Prenat Multivit/[place]/Iron/Folic Ac ( Vitamin 1 Tab) [facility] [place] Stop: 05/14/22 08:59 Last Admin: 04/14/22 09:47 Dose: 1 tab Documented by: Terbutaline Sulfate (Terbutaline Sulfate 1 Mg/Ml Vial) 0.25 mg SQ UD PRN PRN Reason: Contractions
[2022-04-15] MEDS ORDERED: NIFEdipine EXTENDED REL 30 MG TABCR PO SCH (09:00)
[2022-04-15] MEDS: PRENATAL VITAMIN 1 TAB PO SCH (09:12)
[2022-04-15] MEDS: dexAMETHasone 6 MG in SYRINGE 0 ML IV SCH (09:12)
[2022-04-15] MEDS: FAMOTIDINE 10 MG TABLET PO SCH (09:12)
[2022-04-15] MEDS: ENOXAPARIN INJ 40 MG/0.4 ML SYR SQ SCH (09:13)
--- NOTE | 2022-04-15 13:40 | Obstetrical Progress Note ---
Date of Service April 15, 2022 Assessment & Plan (1) uterine contractions in third trimester, antepartum: (2) Dehydration during : (3) COVID-19 affecting in third trimester: (4) No leakage of amniotic fluid into vagina: Plan COVID + PTL Pt doing well Denies any symptoms. No cough, SOB or fever PTL; No ctx on Procardia Decadron series completed On Decadron Plan: continue Procardia labor precautions increase PO fluids follow up in the office at her next scheduled visit Admission and Anticipated Discharge Date Admission Date: April 13, 2022 Results & Data [facility]) Vital Signs (Past 12 Hours) Vital Signs Temp Pulse Resp BP Pulse Ox O2 Del Method 04/15/22 12:30 36.8 C 100 H 18 110/71 97 Room Air 04/15/22 08:00 36.5 C 106 H 20 108/71 98 Room Air
== END 2022-04-15 15:15 | disposition home or self-care (01) ==
LOC: OPB 18:24 → 4S1 18:26 → INTOOBSV 23:33 → 4S1 23:33 → SUATTDRO 23:33 → 4E1 04-14 15:34

== ENCOUNTER 2022-05-23 12:03 | Inpatient (IN) ==
[2022-05-23] MEDS ORDERED: OXYTOCIN 30 UNITS/500 ML BAG IV PRN ×3 (13:05→20:44)
--- NOTE | 2022-05-23 13:14 | History & Physical Report ---
Date of Service May 23, 2022 Assessment & Plan (1) COVID-19 affecting in third trimester: (2) Active labor at term: Plan: 26 yo at 39.6 wks, in labor VSS Afebrile FHR reassuring GBS negative Plan to admit, monitor, epidural per patient request, AROM after Anticipate History of Present Illness Primary Care Provider: NO PCP Patient at 39.6 wks who felt a small gush at 08:30 am while in [place] having BM. No more LOF Ctxs started after that, every 4-5 min, painful. No VB +FM's Her was complicated by: 1) Covid in April, admitted for 3 days 2) SMA syndrome at age 14, resolved 3) Mild asthma GBS neg Allergies Allergy/AdvReac Type Severity Reaction Status Date / Time codeine Allergy Unknown Verified 05/20/22 09:13 Home Medications Medication Instructions Recorded Confirmed Type calcium carbonate 500 mg calcium 500 mg PO DAILY PRN Acid Reflux 05/07/20 05/20/22 History (1,250 mg) chewable tablet vit no.95-ferrous 1 tab PO DAILY 05/07/20 05/20/22 History fumarate 28 mg-folic acid 800 mcg tablet () Patient History Medical History Cramping affecting , antepartum Dehydration during Fever and chills History of asthma No leakage of amniotic fluid into vagina uterine contractions in third trimester, antepartum SMAS (superior mesenteric artery syndrome) Family History Other Sleep apnea Social History Smoking Status: Never smoker Second Hand Exposure: Yes; Hx Alcohol Use: No Hx Substance Use: No Preferred Language: [place]er Communication Ability: Effective Visual Impairment: No Limitations Hearing Ability: Normal 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 Beliefs That Will Affect Care: None marital status: Single Current Living Situation: Significant Other Current Living Situation Comment: Riley Arrieta- Pita 1.5y/o current occupational status: employed Feels Safe at Home: Yes Safety Concerns: Feels Safe At This Time Assistive Devices: None OB History FT on 06/2020 [employer] History No h/o STD's, no h/o HSV/ Chlam/ GC Review of Systems as per Subjective / HPI Physical Exam Constitutional: WD/WN, vitals as above well developed, + thin and comfortable Genitourinary: normal external appearance Manual OB Exam: + cervical dilati on 5 cm, + cervical effacement 70% and + station -1 OB Exam Monitor Tracing: + external uterine monitor used and + category I Amnisure negative Results & Data ([facility]) Vital Signs (Past 12 Hours) Vital Signs Temp Pulse Resp BP 05/23/22 12:24 36.8 C 86 18 129/69 05/23/22 12:14 86 129/69
[2022-05-23] MEDS: LACTATED RINGER'S 1,000 ML IV PRN ×2 (13:20→14:29)
[2022-05-23 13:34] LABS: Hematocrit (blood only) 40.6 % (34.1-44.9); Hemoglobin 13.1 g/dl (12.0-16.0); Mean Corpuscular Hgb Conc 32.3 g/dL (32.0-36.0); Mean Corpuscular Volume 83.7 fL (80.0-100.0); Mean Platelet Volume 10.7 fL (9.4-12.3); Platelet Count 256 K/uL (130-400); RDW Coefficient of Variation 14.6 % (11.5-14.5); RDW Standard Deviation 44.3 fL (36.4-46.3); Red Blood Count 4.85 M/uL (3.93-5.22); White Blood Count 12.93 K/ul (4.8-10.8)
[2022-05-23] MEDS ORDERED: ePHEDrine sulfate 50 MG/ML AMP ONE (13:56)
[2022-05-23] MEDS ORDERED: LIDOCAINE 2%/EPINEPHRINE 1:200,000 20 ML SDV ONE (13:57)
[2022-05-23] MEDS ORDERED: BUPIVACAINE 0.25% 30 ML VIAL ONE (13:57)
[2022-05-23] MEDS ORDERED: fentaNYL citrate 100 MCG/2 ML VIAL ONE (13:57)
[2022-05-23] MEDS ORDERED: SODIUM CHLORIDE 0.9% INJ 10 ML VIAL ONE (13:57)
[2022-05-23] MEDS ORDERED: fentaNYL 2MCG/ML ROPIVACAINE 1.25MG/ML 100 ML BAG EPI ONE (13:58)
--- NOTE | 2022-05-23 14:11 | Anesthesiology Consultation ---
Date of Service May 23, 2022 Assessment & Plan (1) Encounter for pre-operative examination: Chart Review Chart Review: Acceptable Risk for Labor Epidural Consults Requested none ASA ASA2 Proposed Anesthesia Anesthesia Type: Labor Epidural Risk / Benefits Reviewed With: PT / POA / Parent / Guardian, Accepts Plan and Informed Consent Obtained History Height/Weight Height: 5 ft 5 in Weight: 68.039 kg Allergies Allergy/AdvReac Type Severity Reaction Status Date / Time codeine Allergy Unknown Verified 05/20/22 09:13 Medications Home Medications Medication Instructions Recorded Confirmed Last Taken calcium carbonate 500 mg calcium 500 mg PO DAILY PRN Acid Reflux 05/07/20 05/20/22 05/20/22 08:00 (1,250 mg) chewable tablet vit no.95-ferrous 1 tab PO DAILY 05/07/20 05/20/22 05/20/22 08:00 fumarate 28 mg-folic acid 800 mcg tablet () Active Medications Generic Name Dose Route Start Last Admin Trade Name Freq PRN Reason Stop Dose Admin Lactated Ringer's 1,000 mls @ 150 mls/hr 05/23/22 13:05 05/23/22 13:20 Lr IV 05/25/22 13:04 999 mls/hr .[id number] PRN Administration L&D Protocol Protocol Past Medical History Medical History Cramping affecting , antepartum Dehydration during Fever and chills History of asthma No leakage of amniotic fluid into vagina uterine contractions in third trimester, antepartum SMAS (superior mesenteric artery syndrome) Exercise / Class Metabolic Activity II 4-5 Yardwork/Stairs/Walk up hill Past Family History Family History Other Sleep apnea Past Anesthesia History No Hx of Anesthesia Complications and No Family Hx of Anesthesia Complications History of PONV No Hx of PONV and No Hx of Motion Sickness Social History Smoking Status: Never smoker Hx Alcohol Use: No Hx Substance Use: No substance use type: does not use Physical Exam Vital Signs Last Vital Signs Temp 98.2 F 05/23/22 12:24 Pulse 86 05/23/22 12:24 Resp 18 05/23/22 12:24 BP 129/69 05/23/22 12:24 ENMT Mouth: no dentition abnormality Thyromental Distance: > or= 3.5 Finger Breadths Mallampati Class: II Neck normal visual inspection Respiratory normal respiratory effort Auscultation: lungs clear to auscultation bilaterally Cardiovascular Rate/Rhythm: regular rate and regular rhythm Testing Laboratory Results 05/23/22 13:17
[2022-05-23] MEDS ORDERED: NALOXONE HCL 1 MG in SODIUM CHLORIDE 0.9% 1000ML 1,000 ML IV PRN (14:33)
[2022-05-23] MEDS ORDERED: NALBUPHINE HCL INJ 10 MG/ML AMP IV PRN (14:33)
[2022-05-23] MEDS ORDERED: ePHEDrine sulfate 50 MG/ML AMP IV PRN (14:33)
[2022-05-23] MEDS ORDERED: ONDANSETRON INJ 2 MG/ML 2 ML VIAL IV PRN (14:33)
[2022-05-23] MEDS ORDERED: NALOXONE HCL 0.4 MG/1 ML VIAL/CARP IV PRN (14:33)
[2022-05-23] MEDS ORDERED: fentaNYL 2MCG/ML ROPIVACAINE 1.25MG/ML 100 ML BAG EPI PRN (14:33)
[2022-05-23] MEDS ORDERED: diphenhydrAMINE 50 MG/ML VIAL IV PRN (14:33)
--- NOTE | 2022-05-23 18:53 | Obstetrical Progress Note ---
Date of Service May 23, 2022 Assessment & Plan Admission and Anticipated Discharge Date Admission Date: May 23, 2022 Subjective Patient is comfortable since epidural was given VE; 5-6 cm/ 70%/ -2, AROM'ed, moderate meconium FHR categ I ctxs irregular q 3-4 min Augment with low dose pitocin Continue to monitor Results & Data ([facility]) Vital Signs (Past 12 Hours) Vital Signs Temp Pulse Resp BP Pulse Ox 05/23/22 12:24 36.8 C 86 18 129/69 05/23/22 18:47 80 99 05/23/22 18:42 91 H 99 05/23/22 18:39 77 121/65 05/23/22 18:37 92 H 98 05/23/22 18:32 102 H 100 05/23/22 18:27 100 H 99 05/23/22 18:23 80 114/57 L 05/23/22 18:22 93 H 97 05/23/22 18:17 80 99 05/23/22 18:12 74 98 05/23/22 18:09 93 H 113/63 05/23/22 18:07 85 99 05/23/22 18:02 79 97 05/23/22 17:57 99 H 99 05/23/22 17:54 86 121/63 05/23/22 17:52 89 98 05/23/22 17:47 80 99 05/23/22 17:42 91 H 99 05/23/22 17:40 36.7 C 94 H 18 116/68 05/23/22 17:37 92 H 98 05/23/22 17:32 88 97 05/23/22 17:27 86 99 05/23/22 17:26 85 90 05/23/22 17:24 77 113/56 L 05/23/22 17:22 80 98 05/23/22 17:17 89 98 05/23/22 17:12 91 H 97 05/23/22 17:09 82 100/57 L 05/23/22 17:07 83 99 05/23/22 17:02 79 98 05/23/22 16:57 79 97 05/23/22 16:54 88 108/56 L 05/23/22 16:52 85 98 05/23/22 16:47 77 98 05/23/22 16:40 18 05/23/22 16:40 36.9 C 18 05/23/22 16:42 99 H 99 05/23/22 16:38 96 H 107/59 L 05/23/22 16:37 80 98 05/23/22 16:32 94 H 99 05/23/22 16:31 91 H 89 L 05/23/22 16:27 84 98 05/23/22 16:22 86 100 05/23/22 16:23 94 H 110/55 L 05/23/22 16:17 83 99 05/23/22 16:12 89 98 05/23/22 16:09 83 112/58 L 05/23/22 16:07 78 99 05/23/22 16:02 86 99 05/23/22 15:57 93 H 98 05/23/22 15:54 89 108/58 L 05/23/22 15:52 84 99 05/23/22 15:47 89 98 05/23/22 15:42 77 98 05/23/22 15:40 36.9 C 96 H 18 111/70 05/23/22 15:37 102 H 98 05/23/22 15:32 93 H 98 05/23/22 15:27 102 H 98 05/23/22 15:24 102 H 132/73 05/23/22 15:22 93 H 98 05/23/22 15:17 105 H 98 05/23/22 15:12 96 H 98 05/23/22 15:10 90 118/68 05/23/22 15:07 89 99 05/23/22 15:02 89 99 05/23/22 14:57 82 100 05/23/22 14:55 75 119/64 05/23/22 14:52 96 H 99 05/23/22 14:47 85 98 05/23/22 14:42 86 99 05/23/22 14:40 36.9 C 90 16 92 05/23/22 14:37 85 99 05/23/22 14:38 87 118/69 05/23/22 14:32 86 115/63 99 05/23/22 14:27 100 05/23/22 14:27 82 05/23/22 14:26 84 88 L 05/23/22 14:27 78 118/68 05/23/22 14:22 88 97 05/23/22 14:17 101 H 92 05/23/22 14:12 100 05/23/22 14:12 96 H 05/23/22 14:12 101 H 85 L 05/23/22 12:13 18 05/23/22 12:13 36.8 C 18 05/23/22 12:14 86 129/69
[2022-05-23] MEDS ORDERED: CALCIUM CARBONATE 500 MG CHEWABLE TAB PO ONE (19:23)
[2022-05-23] MEDS ORDERED: DIPHTHERIA/TETANUS/PERTUSSIS 0.5 ML SYR/VIAL IM ONE (20:44)
[2022-05-23] MEDS ORDERED: bisacodyL 10 MG SUPP PR PRN (20:44)
[2022-05-23] MEDS ORDERED: BENZOCAINE 20% AER SPR 82.5 GM CAN EXT PRN (20:44)
[2022-05-23] MEDS ORDERED: MEASLES, MUMPS & RUBELLA VIRUS VIAL SQ ONE (20:44)
[2022-05-23] MEDS ORDERED: HYDROCORTISONE ACETATE 25 MG SUPP PR PRN (20:44)
[2022-05-23] MEDS ORDERED: ACETAMINOPHEN 325 MG TAB PO PRN (20:44)
[2022-05-23] MEDS ORDERED: oxyCODONE/ACETAMINOPHEN 5mg/325mg TAB PO PRN (20:44)
--- NOTE | 2022-05-23 20:47 | Delivery Summary ---
Vaginal Delivery Summary Date of Service May 23, 2022 Vaginal Delivery Summary Patient was found to be fully dilated and desire to push she pushed for about 10 minutes and delivered the head without difficulty. The shoulders were delivered with minimal traction. Baby was handed to the mother, where mouth and nose were suctioned, the cord was clamped times and cut at 1 minute delay. Baby was vigorously moving and crying at that point. Then the vagina and perineum were checked for lacerations. There was a small second-degree resignation at the posterior fourchette/perineum. It was repaired with 0 Vicryl in a running fashion. Excellent hemostasis achieved. Rest of the vagina and labia were intact. Placenta was found to be in vagina, delivered spontaneously as intact and complete. Uterus was explored and found to be empty, the lower segment was cleared of all clots and debris's, fundus was firm and EBL was 200 mL. IV oxytocin infusion was started. Mom and baby tolerated procedure well. Sponge needle and instrument count was correct x2. There was a viable male infant, Apgars 8/9 and weight is pending. No complications happened and I was present during whole procedure.
[2022-05-23] MEDS: DOCUSATE SODIUM 100 MG CAP PO SCH (21:00)
[2022-05-24] MEDS: IBUPROFEN 600 MG TAB PO PRN ×4 (00:05→17:08)
--- NOTE | 2022-05-24 00:47 | Anesthesia Procedure Note ---
Date of Service May 24, 2022 Anesthesia Post Epidural Note Vital Signs Vital Signs: Temp Pulse Resp BP Pulse Ox O2 Del Method 36.5 C 73 18 112/70 96 05/23/22 23:45 05/23/22 23:45 05/23/22 23:45 05/23/22 23:45 05/23/22 23:45 05/23/22 23:45 Pain Intensity Lower Abdomen: Pain Intensity: 4 Notes Mental Status: alert / awake / arousable Nausea / Vomiting: adequately controlled Pain: adequately controlled Airway Patency, RR, SpO2: stable & adequate BP & HR: stable & adequate Hydration State: stable & adequate Neuraxial Anesthesia: was administered and sensory block is resolving Anesthetic Complications: no major complications apparent and Pt Satisfied with anesthetic care Epidural: Removed without complications and With tip intact
[2022-05-24 06:45] LABS: Hematocrit (blood only) 34.8 % (34.1-44.9); Hemoglobin 11.4 g/dl (12.0-16.0); Mean Corpuscular Hemoglobin 27.3 pg (25.0-34.0); Mean Corpuscular Hgb Conc 32.8 g/dL (32.0-36.0); Mean Corpuscular Volume 83.5 fL (80.0-100.0); Mean Platelet Volume 10.6 fL (9.4-12.3); Platelet Count 197 K/uL (130-400); RDW Coefficient of Variation 14.6 % (11.5-14.5); RDW Standard Deviation 44.6 fL (36.4-46.3); Red Blood Count 4.17 M/uL (3.93-5.22); White Blood Count 13.14 K/ul (4.8-10.8)
[2022-05-24] MEDS: FERROUS SULFATE 325 MG TAB PO SCH (08:43)
[2022-05-24] MEDS: PRENATAL VITAMIN 1 TAB PO SCH (08:43)
[2022-05-24] MEDS: DOCUSATE SODIUM 100 MG CAP PO SCH ×2 (08:43→20:50)
--- NOTE | 2022-05-24 09:46 | Obstetrical Progress Note ---
Date of Service May 24, 2022 Assessment & Plan Admission and Anticipated Discharge Date Admission Date: May 23, 2022 Subjective Patient is seen and examined. She feels well, no complaints. Ambulating without dizziness Voiding without difficulty Tolerating regular diet with out N&V Bleeding is minimal No fever/ chills/ CP/ SOB/ N&V/ Leg pain Bottle feeding without problems, plans to pump and give breast milk. Vital Signs Temp Pulse Pulse Pulse Resp BP BP 05/24/22 08:45 36.4 C L 61 18 05/24/22 03:45 36.5 C 56 L 16 109/67 05/23/22 23:45 36.5 C 73 18 112/70 05/23/22 22:39 81 127/65 05/23/22 22:24 80 137/74 05/23/22 22:09 76 125/61 05/23/22 21:54 64 129/62 BP Pulse Ox O2 Del Method 05/24/22 08:45 115/70 Room Air 05/24/22 03:45 97 Room Air 05/23/22 23:45 96 Room Air 05/23/22 22:39 05/23/22 22:24 05/23/22 22:09 05/23/22 21:54 Lab Results 05/23/22 05/24/22 Range/Units 13:17 06:33 WBC 12.93 H 13.14 H (4.8-10.8) K/ul RBC 4.85 4.17 (3.93-5.22) M/uL Hgb 13.1 11.4 L (12.0-16.0) g/dl Hct 40.6 34.8 (34.1-44.9) % MCV 83.7 83.5 (80.0-100.0) fL MCH 27.0 27.3 (25.0-34.0) pg MCHC 32.3 32.8 (32.0-36.0) g/dL RDW Std Deviation 44.3 44.6 (36.4-46.3) fL RDW Coeff of Senthil 14.6 H 14.6 H (11.5-14.5) % Plt Count 256 197 (130-400) K/uL MPV 10.7 10.6 (9.4-12.3) fL PE: General: Alert, orientedx3, NAD Abd: soft, NT, fundus firm, below Umbilicus Perineum intact, Lochia rubra minimal Ext; NT, no edema AP: 26 yo s/p , ppd# 1 VSS Afebrile doing well Continue routine care All questions were answered D/C home in am Results & Data ([facility]) Vital Signs (Past 12 Hours) Vital Signs Temp Pulse Pulse Pulse Resp BP BP 05/24/22 08:45 36.4 C L 61 18 05/24/22 03:45 36.5 C 56 L 16 109/67 05/23/22 23:45 36.5 C 73 18 112/70 05/23/22 22:39 81 127/65 05/23/22 22:24 80 137/74 05/23/22 22:09 76 125/61 05/23/22 21:54 64 129/62 BP Pulse Ox O2 Del Method 05/24/22 08:45 115/70 Room Air 05/24/22 03:45 97 Room Air 05/23/22 23:45 96 Room Air 05/23/22 22:39 05/23/22 22:24 05/23/22 22:09 05/23/22 21:54
[2022-05-24] MEDS ORDERED: bisacodyL 5 MG TABEC PO SCH (20:00)
[2022-05-25 05:42] LABS: Hemoglobin 11.1 g/dl (12.0-16.0)
[2022-05-25] MEDS: FERROUS SULFATE 325 MG TAB PO SCH (08:54)
[2022-05-25] MEDS: IBUPROFEN 600 MG TAB PO PRN (08:54)
[2022-05-25] MEDS: DOCUSATE SODIUM 100 MG CAP PO SCH (08:55)
[2022-05-25] MEDS: PRENATAL VITAMIN 1 TAB PO SCH (08:55)
--- NOTE | 2022-05-25 09:23 | Obstetrical Progress Note ---
Date of Service May 25, 2022 Assessment & Plan (1) Normal course: PPD #2 pt doing well d/c home with instructions Subjective Ambulation: ambulating normally Voiding: no voiding problems Passing Gas:: Yes Diet Tolerance:: regular diet Lochia:: Small Feeding Type:: breast feeding Review of Systems All systems reviewed & are unremarkable except as noted in HPI & below Physical Exam Constitutional WD/WN, vitals as above well developed and well nourished Eyes PERRL, conjunctivae normal, anicteric sclerae Neck trachea midline, no thyromegaly Respiratory normal respiratory effort, lungs clear to auscultation Auscultation: no crackles, no rales and no wheezes Cardiovascular RRR, no murmur, no edema Gastrointestinal (Abdomen) normal bowel sounds, soft, nontender, no hepatosplenomegaly Uterus is below umbilicus Musculoskeletal no cyanosis or clubbing, extremities motor strength 5/5 Skin no rashes, warm and dry Neurologic patellar DTR's 2+ bilat, sensation intact Psychiatric A+Ox3, euthymic affect Genitourinary normal external appearance Results & Data ([facility]) Vital Signs (Past 12 Hours) Vital Signs Temp Pulse Resp BP Pulse Ox O2 Del Method 05/25/22 07:45 36.7 C 75 16 116/76 99 Room Air
== END 2022-05-25 13:00 | disposition home or self-care (01) | DRG 807 ==
LOC: OPB 12:03 → 4S1 12:04 → 4E2 23:10

== ENCOUNTER 2025-04-23 07:50 | Inpatient (IN) ==
--- NOTE | 2025-04-23 08:37 | Obstetrical Progress Note ---
Date of Service April 23, 2025 Assessment & Plan Admission and Anticipated Discharge Date Admission Date: April 23, 2025 Subjective ambulating well no calf tenderness vaginal bleeding scant hgb 11.1 Results & Data Vital Signs (Past 12 Hours) Vital Signs Temp Pulse Resp BP 04/23/25 08:04 36.8 C 20 04/23/25 08:01 97 H 116/64
[2025-04-23] MEDS ORDERED: LIDOCAINE 1% LOCAL 20 ML VIAL INFIL PRN (08:54)
[2025-04-23] MEDS ORDERED: OXYTOCIN 30 UNITS/NSS 30 UNITS/500 ML BAG IV PRN ×2 (08:54→15:55)
[2025-04-23 09:36] LABS: Hematocrit (blood only) 39.3 % (37.0-47.0); Hemoglobin 13.0 g/dl (12.0-16.0); Mean Corpuscular Hemoglobin 28.2 pg (25.0-34.0); Mean Corpuscular Volume 85.2 fL (80.0-100.0); Platelet Count 205 K/uL (130-400); RDW Standard Deviation 51.2 fL (36.4-46.3); Red Blood Count 4.61 M/uL (4.20-5.40); White Blood Count 8.81 K/ul (4.8-10.8)
--- NOTE | 2025-04-23 09:49 | History & Physical Report ---
Date of Service April 23, 2025 Assessment & Plan (1) Post-dates : Plan: induction with Oxytocin Admission and Anticipated Discharge Date Admission Date: April 23, 2025 History of Present Illness Chief Complaint: induction of labor Primary Care Provider: JOLIE PCP 29 F P2002 @ 40.2 weeks here for induction of labor for post dates . GBS is negative. care has been uneventful. Allergies Allergy/AdvReac Type Severity Reaction Status Date / Time codeine Allergy Unknown Verified 05/20/22 09:13 morphine Allergy Swelling Verified 04/23/25 08:24 of Lip/Tongue/Throat nitrofurantoin Allergy Difficulty Verified 04/23/25 08:23 [From Macrobid] Breathing latex AdvReac Itching Verified 04/23/25 08:22 Home Medications Medication Instructions Recorded Confirmed Type vit no.95-ferrous 1 tab PO DAILY 05/07/20 04/23/25 History fumarate 28 mg-folic acid 800 mcg tablet () Patient History Medical History SMAS (superior mesenteric artery syndrome) History of asthma Surgical History H/O breast augmentation Family History Other Sleep apnea Social History Smoking Status: Never smoker Second Hand Exposure: Yes; Do You Dip or Chew Tobacco: No; Hx Alcohol Use: No Hx Substance Use: No Preferred Language: Libyan Communication Ability: Effective Visual Impairment: No Limitations Hearing Ability: Normal 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 Beliefs That Will Affect Care: None marital status: Single Current Living Situation: Significant Other Current Living Situation Comment: FOB and 2 sons current occupational status: employed Feels Safe at Home: Yes Safety Concerns: Feels Safe At This Time Assistive Devices: None OB History x2 RN TRANSITION History neg Review of Systems All systems reviewed & are unremarkable except as noted in HPI & below Physical Exam Constitutional: WD/WN, vitals as above Eyes: PERRL, conjunctivae normal, anicteric sclerae Respiratory: normal respiratory effort Cardiovascular: Rate/Rhythm: regular rate and regular rhythm Gastrointestinal (Abdomen): Inspection/Auscultation: abdomen normal to inspection abdomen soft and non-tender Musculoskeletal: Extremities: extremities normal to inspection Skin: no rashes, warm and dry Neurologic: patellar DTR's 2+ bilat, sensation intact Psychiatric: A+Ox3, euthymic affect Genitourinary: no vaginal lesions, no adnexal mass Manual OB Exam: + cervical dilation 2 cm, + cervical effacement 50% and + station high OB Exam Monitor Tracing: + external FHT monitor used, + external uterine monitor used, + category I and + normal FHT variability Results & Data Vital Signs (Past 12 Hours) Vital Signs Temp Pulse Resp BP 04/23/25 08:04 36.8 C 20 04/23/25 08:01 97 H 116/64 Laboratory Results 04/23/25 09:12 WBC 8.81 RBC 4.61 Hgb 13.0 Hct 39.3 MCV 85.2 MCH 28.2 MCHC 33.1 RDW Std Deviation 51.2 H RDW Coeff of Senthil 16.3 H Plt Count 205 MPV 9.8 Code Status & VTE Plan VTE Prophylaxis Plan VTE Prophylaxis will be ordered: No Monitoring External Monitor Cat 1 with occasional irregular contractions (1) Post-dates Post-term type: 40-42 weeks gestation Qualified Code(s): O48.0 - Post-term
[2025-04-23] MEDS: LACTATED RINGER'S 1,000 ML IV PRN (09:55)
[2025-04-23] MEDS: OXYTOCIN 30 UNITS/NSS 30 UNITS/500 ML BAG IV PRN (09:57)
--- NOTE | 2025-04-23 12:17 | Labor Progress Brief Note ---
Date of Service April 23, 2025 Assessment & Plan Admission and Anticipated Discharge Date Admission Date: April 23, 2025 Physical Exam Genitourinary: Manual OB Exam: + cervical dilation 3 cm and 4 cm, + cervical effacement 60%, + station -2 and + amniotic fluid clear OB Exam Monitor Tracing: + external FHT monitor used, + external uterine monitor used, + category I and + normal FHT variability AROM with Amni-hook clear fluid Results & Data Vital Signs (Past 12 Hours) Vital Signs Temp Pulse Resp BP 04/23/25 11:01 79 04/23/25 11:01 99/55 L 04/23/25 09:58 83 04/23/25 09:58 107/74 04/23/25 08:04 36.8 C 20 04/23/25 08:01 97 H 116/64
[2025-04-23] MEDS ORDERED: SODIUM CHLORIDE 0.9% PF INJ 10 ML VIAL EPI PRN (12:34)
[2025-04-23] MEDS ORDERED: BUPIVACAINE 0.25% PF 30 ML VIAL EPI PRN (12:34)
[2025-04-23] MEDS ORDERED: LIDOCAINE 2% MPF LOCAL 5 ML VIAL EPI PRN (12:34)
[2025-04-23] MEDS ORDERED: ROPIVACAINE 0.5% PF 5 MG/ML 20 ML VIAL EPI PRN (12:34)
[2025-04-23] MEDS ORDERED: ONDANSETRON INJ 2 MG/ML 2 ML VIAL IV PRN (12:34)
[2025-04-23] MEDS ORDERED: fentANYL 2 MCG/ML BUPIVacaine 0.125%-NSS 100ML BAG EPI PRN (12:34)
[2025-04-23] MEDS ORDERED: NALOXONE HCL 0.4 MG/1 ML VIAL/CARP IV PRN (12:34)
[2025-04-23] MEDS ORDERED: diphenhydrAMINE 50 MG/ML VIAL IV PRN (12:34)
--- NOTE | 2025-04-23 12:34 | Anesthesiology Consultation ---
Date of Service April 23, 2025 Assessment & Plan (1) Encounter for pre-operative examination: Chart Review Chart Review: Patient NOT seen in Pre Admission Testing and Acceptable Risk for Labor Epidural Consults Requested none History Height/Weight Height: 5 ft 5 in Weight: 68.492 kg Allergies Allergy/AdvReac Type Severity Reaction Status Date / Time codeine Allergy Unknown Verified 05/20/22 09:13 morphine Allergy Swelling Verified 04/23/25 08:24 of Lip/Tongue/Throat nitrofurantoin Allergy Difficulty Verified 04/23/25 08:23 [From Macrobid] Breathing latex AdvReac Itching Verified 04/23/25 08:22 Medications Home Medications Medication Instructions Recorded Confirmed Last Taken vit no.95-ferrous 1 tab PO DAILY 05/07/20 04/23/25 04/22/25 07:00 fumarate 28 mg-folic acid 800 mcg tablet () Active Medications Generic Name Dose Route Start Last Admin Trade Name Freq PRN Reason Stop Dose Admin Lactated Ringer's 1,000 mls @ 125 mls/hr 04/23/25 08:54 04/23/25 12:53 Lr IV 04/25/25 08:53 125 mls/hr .Q8H PRN Administration L&D Protocol Protocol Oxytocin 30 units in 500 mls @ 3 mls/hr 04/23/25 09:43 04/23/25 10:30 Pitocin 30 Units/Nss IV 04/25/25 09:42 0.18 units/hr .Q24H PRN 3 mls/hr Labor Induction/Augmentation Titration Protocol 0.18 UNITS/HR Past Medical History Medical History SMAS (superior mesenteric artery syndrome) History of asthma Exercise / Class Metabolic Activity II 4-5 Yardwork/Stairs/Walk up hill Past Family History Family History Other Sleep apnea Past Surgical History Surgical History H/O breast augmentation Social History Smoking Status: Never smoker Do You Dip or Chew Tobacco: No Hx Alcohol Use: No Hx Substance Use: No substance use type: does not use Physical Exam Vital Signs Last Vital Signs Temp 36.8 C 04/23/25 08:04 Pulse 74 04/23/25 12:58 Resp 20 04/23/25 08:04 BP 114/65 04/23/25 12:58 Pulse Ox 99 04/23/25 12:58 Testing Laboratory Results 04/23/25 09:12
[2025-04-23] MEDS: LIDOCAINE 2%/EPINEPHRINE 1:200,000 20 ML PF ONE (13:01)
[2025-04-23] MEDS: BUPIVACAINE 0.25% PF 30 ML VIAL ONE (13:01)
[2025-04-23] MEDS: fentANYL 2 MCG/ML BUPIVacaine 0.125%-NSS 100ML BAG ONE (13:02)
[2025-04-23] MEDS: SODIUM CHLORIDE 0.9% PF INJ 10 ML VIAL ONE (14:00)
[2025-04-23] MEDS: BUPIVACAINE 0.25% PF 30 ML VIAL EPI STA (14:01)
[2025-04-23] MEDS: SODIUM CHLORIDE 0.9% PF INJ 10 ML VIAL EPI STA (14:02)
[2025-04-23] MEDS: LIDOCAINE 2%/EPINEPHRINE 1:200,000 20 ML PF EPI STA (14:02)
[2025-04-23] MEDS: CALCIUM CARBONATE 500 MG CHEWABLE TAB PO PRN (14:06)
[2025-04-23] MEDS ORDERED: HYDROCORTISONE ACETATE 25 MG SUPP PR PRN (15:55)
[2025-04-23] MEDS ORDERED: DIPHTHER/TETAN/PERTUS Vaccine (Tdap, Adol/Adult) 0.5mL IM ONE (15:55)
[2025-04-23] MEDS ORDERED: BENZOCAINE 20% SPRY 85 APPLN/85 GM CAN EXT PRN (15:55)
--- NOTE | 2025-04-23 15:58 | Delivery Summary ---
Vaginal Delivery Summary Date of Service April 23, 2025 Vaginal Delivery Summary live male ELIAZAR with delayed cord clamping and Apgars 8/9 weight pending. Cord blood obtained followed by spontaneous delivery of intact placenta. No tears. Bladder strait cathed for 25 ml. urine. QBL 105 ml. Final sponge and instrument count are correct. Mom and baby stable.
[2025-04-23] MEDS: IBUPROFEN 600 MG TAB PO PRN (18:06)
[2025-04-23] MEDS: DOCUSATE SODIUM 100 MG CAP PO SCH (21:14)
[2025-04-24] MEDS: ACETAMINOPHEN 325 MG TAB PO PRN (03:34)
[2025-04-24 06:34] LABS: Hematocrit (blood only) 37.2 % (37.0-47.0); Hemoglobin 12.6 g/dl (12.0-16.0); Mean Corpuscular Hemoglobin 28.6 pg (25.0-34.0); Mean Corpuscular Volume 84.5 fL (80.0-100.0); Platelet Count 189 K/uL (130-400); RDW Standard Deviation 49.9 fL (36.4-46.3); Red Blood Count 4.40 M/uL (4.20-5.40); White Blood Count 13.19 K/ul (4.8-10.8)
[2025-04-24 07:26] VITALS: RESP 18; O2SAT 97
[2025-04-24] MEDS: PRENATAL VITAMIN 1 TAB PO SCH (08:21)
[2025-04-24] MEDS: FERROUS SULFATE 325 MG TAB PO SCH (08:21)
--- NOTE | 2025-04-24 08:25 | Obstetrical Progress Note ---
Date of Service April 24, 2025 Assessment & Plan Admission and Anticipated Discharge Date Admission Date: April 23, 2025 Subjective Patient is seen and examined. She feels well, no complaints. Ambulating without dizziness Voiding without difficulty Tolerating regular diet with out N&V Bleeding is minimal No fever/ chills/ CP/ SOB/ N&V/ Leg pain Breast feeding without problems Vital Signs Temp Pulse Resp BP Pulse Ox O2 Del Method 04/24/25 07:25 36.4 C L 51 L 18 116/74 97 Room Air 04/24/25 03:00 36.4 C L 58 L 16 112/69 98 Room Air 04/23/25 23:05 36.6 C 16 98 Room Air Lab Results 04/23/25 04/24/25 Range/Units 09:12 05:53 WBC 8.81 13.19 H (4.8-10.8) K/ul RBC 4.61 4.40 (4.20-5.40) M/uL Hgb 13.0 12.6 (12.0-16.0) g/dl Hct 39.3 37.2 (37.0-47.0) % MCV 85.2 84.5 (80.0-100.0) fL MCH 28.2 28.6 (25.0-34.0) pg MCHC 33.1 33.9 (32.0-36.0) g/dL RDW Std Deviation 51.2 H 49.9 H (36.4-46.3) fL RDW Coeff of Senthil 16.3 H 15.9 H (11.5-14.5) % Plt Count 205 189 (130-400) K/uL MPV 9.8 10.3 (9.4-12.4) fL Treponema pallidum Ab Negative (Negative) PE: General: Alert, orientedx3, NAD Abd: soft, NT, fundus firm, below Umbilicus Perineum intact, Lochia rubra minimal Ext; NT, no edema AP: 29 yo s/p , ppd# 1 VSS Afebrile doing well Continue routine care Wants d/c this evening All questions were answered D/C home , f/u in office Results & Data Vital Signs (Past 12 Hours) Vital Signs Temp Pulse Resp BP Pulse Ox O2 Del Method 04/24/25 07:25 36.4 C L 51 L 18 116/74 97 Room Air 04/24/25 03:00 36.4 C L 58 L 16 112/69 98 Room Air 04/23/25 23:05 36.6 C 16 98 Room Air
[2025-04-24] MEDS ORDERED: NON-FORMULARY MEDICATION (Pnv No.95-Ferrous Fumarate-Fa [Prenatal] 28 mg iron- 800 mcg Tab PO SCH (09:00)
[2025-04-24 15:23] VITALS: BP 123/74; PULSE 67; TEMP 97.5
== END 2025-04-24 17:15 | disposition home health service (06) | DRG 807 ==
LOC: 4S1 07:50 → 4E2 18:40